=== PATIENT | male | born 1945 | race Two or more races ===

== ENCOUNTER 2024-11-29 07:29 | Inpatient (IN) | payer MEDICARE, MEDICAID, SELFPAY ==
[2024-11-29] VITALS (28 sets, daily range): BP systolic 94–136; BP diastolic 48–95; PULSE 53–161; RESP 12–24; TEMP 36.6–36.9; O2SAT 86–100; BMI 29.9
--- NOTE | 2024-11-29 07:40 | EKG_ITS ---
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
--- NOTE | 2024-11-29 08:06 | PD.EDARRY ---
ED Arrhythmia Palp. RME/HPI General Chief Complaint: Chest Pain Stated Complaint: chest pain chills Time Seen by Provider: 11/29/24 08:03 Arrival date/time: 11/29/24 07:29 RME / HPI RME / HPI narrative: DR. HOYOS MAIN ED EVALUATION: 79-year-old male with history of hypertension, who presents to the emergency department with approximately 18 hours of substernal chest burning which he describes as acid pain , which is progressively worsened to this morning where he is now feeling lightheaded and wants to faint. He denies recent illness. He denies shortness of breath or cough. He denies any new medicines prescribed or [id number]. Related Data Home Medications ?Medication ?Instructions ?Recorded ?Confirmed aspirin 81 mg tablet 81 mg PO QDAY 08/13/20 08/13/20 losartan 100 mg tablet 100 mg PO QDAY 08/13/20 08/13/20 Previous Rx's ?Medication ?Instructions ?Recorded azithromycin 250 mg tablet See Rx Instructions PO .COMPLEX #6 08/13/20 tabs ibuprofen 600 mg tablet 600 mg PO QID PRN fever or pain 08/13/20 #30 tabs psyllium husk 3.4 gram/5.4 gram 1 tbsp PO QDAY #283 grams 08/13/20 oral powder Allergies Allergy/AdvReac Type Severity Reaction Status Date / Time No Known Allergies Allergy Verified 11/29/24 07:31 Review of Systems Review of Systems Systems Reviewed: All systems reviewed, normal except as documented Past Medical History Past Medical History CARDIAC: Negative Congestive Heart Failure RESPIRATORY: Negative Chronic Obstructive Pulmonary Disease (COPD) GENITOURINARY: Negative Renal Disease ENDOCRINE: Negative Diabetes Mellitus Type 1 or Diabetes Mellitus Type 2 Social History SMOKING STATUS: Never smoker SUBSTANCE USE: does not use ALCOHOL: Never ED Exam Narrative Physical exam: GENERAL APPEARANCE: AxOx4, generally well-appearing, no acute distress, anxious crying HEART: Normal rate and regular rhythm, normal S1/S1, no m/r/g LUNGS: CTAB, moving air well. No crackles or wheezes are heard. ABDOMEN: Soft, nontender, nondistended with good bowel sounds heard. EXTREMITIES: Without cyanosis, clubbing or edema. NEUROLOGICAL: Grossly nonfocal. Alert and oriented, moving all 4 extremities. CN not formally tested but appear grossly intact. Observed to ambulate with normal gait. Skin: Warm and dry without any rash. Course Quality Measures none Orders Category Date Time Status EKG (ED ONLY) *Do not use* NOW Care 11/29/24 07:40 Completed EKG (ED Only) Stat Exams 11/29/24 07:40 Draft Reevaluation(s) Reevaluation #1: Re-assessment at the time of disposition demonstrates that the patient is well appearing but heart rate still in the 118-120s even on a full dose of Diltiazem drip. Will admit the patient. Time: 10:15 Vital Signs Vital signs: Vital Signs Temperature 97.8 F 11/29/24 07:45 Pulse Rate 127 H 11/29/24 07:45 Respiratory Rate 24 H 11/29/24 07:45 Blood Pressure 129/92 H 11/29/24 07:45 Pulse Oximetry (%) 99 11/29/24 07:45 Oxygen Delivery Method Room Air 11/29/24 07:45 oxygen saturation 99% on room air, patient is not hypoxic Procedures -ED EKG Interpretation #1: Date of EK11/29/24 Time of EK:48 Rate: 142 Interpretation: Interpreted by me EKG Impression: No acute ST-T changes, Normal axis and Atrial fibrillation (Rapid ventricular response) Arrhythmia/Palpitations MDM Narrative MDM Narrative:: I, Ginny Thompson am scribing for and in the presence of Dr. Hoyos. Patient data External records reviewed:: [facility] previous records Clinical information provided by:: patient Social determinants that could affect healthcare access:: none Patient has the following chronic illnesses:: Hypertension How is presenting disease/condition affected by chronic disease/condition?: uneffected by Evaluation data The following diagnostics were reviewed and interpreted by me:: lab results, radiology exam(s) and EKG tracing(s) Lab and/or radiology exams considered but not ordered:: none Interpretation Summary: Procedure(s): XR chest 1V Accession Number(s): [id number] cc: Austin Hoyos MD; Americo Thompson MD~ Examination: AP chest single view Technique one AP portable upright chest single view Exam date and time: November 29, 2024 0720 hours Comparison August 13, 2020 INDICATIONS: Onset chest pain today FINDINGS: Normal heart size No pneumonia or pulmonary edema IMPRESSION: No pneumonia or pulmonary edema Dictated By: Americo Thompson MD Medications / Prescriptions Medications or Prescriptions considered but not ordered:: none Medication administrations:: see above if any Consultations Consultation(s) initiated? (list below): Yes Consultation #1 (Physician, Specialty, Details): Discussed test HPI, PMHx, lab, radiology results and/or management with hospitalist. Will admit for further evaluation and management. Accepts patient for admission. Time: 10:30 Diagnosis Differential diagnosis arrhythmia/palpitations: palpitations, anxiety, sinus tachycardia and supraventricular tachycardia Most likely diagnosis given after review of the tests above:: Atrial fibrillation with RVR Chest pain Admission Indicated Admission indicated?: indicated Admission Request Was there a request for admission?: Yes Admission Attestation Admission request attestation: Discussed case with [] from Hospitalist service regarding admission. Discussed patients ED course, exam findings, labs, and radiology results. The Hospitalist [agrees,declines] to accept the patient for admission. Disposition Plan Disposition Plan: Admit Critical Care Time Critical Care Time Critical Care Time: Yes Total Critical Care Time (min.): 45 Attestation: The high probability of sudden, clinically significant deterioration in the patient?s condition required the highest level of my preparedness to intervene urgently. The services I provided to this patient were to treat and/or prevent clinically significant deterioration. Services included the following: chart data review, reviewing nursing notes and/or old charts, documentation time, outplacement consultant collaboration regarding findings and treatment options, medication orders and management, direct patient care, vital sign assessments and ordering, interpreting and reviewing diagnostic studies and lab tests. Aggregate critical care time includes only time during which I was engaged in work directly related to the patient?s care, as described above, whether at bedside or elsewhere in the Emergency Department. It did not include time spent performing other reported procedures or the services of residents, students, nurses or physician assistants. Discharge Plan Plan Patient Disposition: Admit Acute Care w/in Hospital Prescriptions/Referrals Prescriptions/Med Rec: No Action aspirin 81 mg Tablet 81 mg PO QDAY losartan 100 mg Tablet 100 mg PO QDAY azithromycin 250 mg tablet See Rx Instructions .ROUTE .COMPLEX Qty: 6 0RF Rx Instructions: take 500 mg today (day 1), then 250 mg for 4 days (days 2-5) psyllium husk 3.4 gram/5.4 gram powder 1 tbsp PO QDAY Qty: 283 0RF Rx Instructions: mix into at least 8 oz of water or juice before administering ibuprofen 600 mg tablet 600 mg PO QID PRN (Reason: fever or pain) Qty: 30 0RF Referrals: Troy Millard [Primary Care Provider] - In 1 week Problem List Clinical Impression: Atrial fibrillation with RVR, Chest pain Patient/Caregiver Discharge Instructions Print Language: Tuvaluan Stand Alone Forms: Gi Award Info., Patient Portal Info Letter
--- NOTE | 2024-11-29 08:14 | PC.NURSE ---
PT ARRIVES FROM HOME THROUGH TRIAGE, FR CP THAT BEGAN THIS MORNING. PT KSTATES IT IS A DULL SENSATION 8/10 PAIN , AND HAS DIZZINESS WELL. PT TANVI RVR ON TELE, OTHE VSS.
[2024-11-29] MEDS: Aspirin 325 MG TABLET PO (08:25)
[2024-11-29] MEDS: DILTIAZEM INJ 5 MG/ML VIAL 5 ML 15 MG IV (08:26)
[2024-11-29 08:28] LABS: Basophils % (Auto) 1 % (0-2.5); Eosinophils # (Auto) 0.1 Thou/mm3 (0.0-0.5); Eosinophils % (Auto) 1 % (0-10); Hematocrit 39.7 % (41.0-53.0); Hemoglobin 14.4 g/dL (13.5-16.0); Immature Granulocytes % (Auto) 0 % (0-0); Immature Granulocytes Auto 0.01 Thou/mm3 (0.00-0.00); Lymphocytes # (Auto) 0.9 Thou/mm3 (1.0-4.8); Lymphocytes % (Auto) 13 % (10-50); Mean Corpuscular HGB Conc 36.3 g/dl (31.0-37.0); Mean Corpuscular Hemoglobin 33.3 pg (25.0-35.0); Mean Corpuscular Volume 92 fL (80-100); Monocytes # (Auto) 0.5 Thou/mm3 (0.0-0.8); Monocytes % (Auto) 7 % (0-12); Neutrophils # (Auto) 5.6 Thou/mm3 (1.8-7.7); Neutrophils % (Auto) 78 % (37-80); Nucleated Red Blood Cell % 0 /100 WBC (0); Platelet Count 229 Thou/mm3 (140-440); RDW Standard Deviation 44.1 fL (35.1-43.9); Red Blood Count 4.33 Miln/mm3 (4.50-5.90); White Blood Count 7.1 Thou/mm3 (3.8-10.6)
[2024-11-29] MEDS: DILTIAZEM in D5W 125 MG 125 MG/125 ML BAG 10 MG IV (08:30)
[2024-11-29 08:58] LABS: Alanine Aminotransferase 17 U/L (10-49); Albumin, Serum 4.6 gm/dL (3.4-4.8); Albumin/Globulin Ratio 1.5 (1.2-2.2); Alkaline Phosphatase 92 U/L (46-116); Anion Gap 14 (7-16); Aspartate Amino Transferase 22 U/L (0-34); BUN/Creatinine Ratio 17 Ratio (12-20); Bilirubin,Total 1.8 mg/dL (0.3-1.2); Blood Urea Nitrogen 19 mg/dL (9-23); Calcium 10.7 mg/dL (8.3-10.6); Calcium (Corrected) 10.7 mg/dL (8.5-10.1); Carbon Dioxide 23.1 mMol/L (20.0-31.0); Chloride 103 mMol/L (98-107); Creatinine (Component) 1.1 mg/dL (0.6-1.3); Estimated Creatinine Clearance 55.5 mL/min (>60); Glucose 150 mg/dL (74-106); Osmolality,Calculated 284 (275-295); Potassium 3.3 mMol/L (3.4-5.1); Sodium 140 mMol/L (136-145); Total Protein 7.6 gm/dL (5.7-8.2); Troponin I < 0.020 ng/mL (0.0-0.045); eGFR > 60 See Note
[2024-11-29] MEDS: HEPARIN SOD INJ 5000 UNIT/ML VIAL SC (13:26)
[2024-11-29] MEDS: PANTOPRAZOLE 40 MG TABLET PO (13:27)
[2024-11-29] MEDS: POTASSIUM CHLORIDE 20 mEq TABCR 40 MEQ PO (13:27)
--- NOTE | 2024-11-29 13:47 | ESHP_ITS ---
Documentation for date of: 11/29/24 [facility] History of Present Illness Chief complaint: chest pain History of present illness: The patient is a 79-year-old male with a previous medical history of hypertension who came to the ED due to chest pain that started approximately a day ago. He reported that he ate some food before going to sleep and woke up with feeling in his chest that is similar to the heartburn that he has. The chest pain worsened and he started to experiencing lightheadedness, dizziness he decided to go to the ED. In the ED his blood pressure was 129/92, pulse was in the 130s-150s, he saturating well on room air. Labs showed mild hypokalemia 3.3, creatinine 1.1, glucose 150, T. bili 1.8, corrected calcium 10.7, troponin I was negative twice, normal lipase. EKG revealed atrial fibrillation chest x- ray was negative for pneumonia or pulmonary edema. He received aspirin 325 mg once, diltiazem 50 mg once and was started on diltiazem drip. His chest pain has improved and he reports that at the moment of examination he does not have a chest pain. Patient was admitted for management of new onset A-fib. Allergies: None Social history: works as a riding coach at the school, he is a drink and smoke cigarettes over 30 years ago Surgical history: Left arm surgery when he was younger due to an accident Family history:Brother from a heart attack Review of Systems Review of Systems Systems Reviewed: All systems reviewed, normal except as documented Past Medical History Past Medical History CARDIAC: Positive Hypertension; Negative Congestive Heart Failure RESPIRATORY: Negative Chronic Obstructive Pulmonary Disease (COPD) GENITOURINARY: Negative Renal Disease ENDOCRINE: Negative Diabetes Mellitus Type 1 or Diabetes Mellitus Type 2 Social History SMOKING STATUS: Never smoker SUBSTANCE USE: does not use ALCOHOL: Never Exam Vital Signs Temp Pulse Resp BP Pulse Ox O2 Del Method 97.8 F 135 H 16 114/64 95 Room Air 11/29/24 07:45 11/29/24 10:30 11/29/24 10:30 11/29/24 10:30 11/29/24 10:30 11/29/24 09:00 Narrative Exam Physical Exam General: Awake and in no acute distress. Conversational and non-toxic appearing. HEENT: Normocephalic, atraumatic, mucous membranes moist. Heart: Irregular rate and rhythm, no murmurs. Lungs: Clear to auscultation with no wheezing or crackles. Abdomen: Soft, nondistended, nontender, positive bowel sounds. ?No guarding or rebound tenderness. Neurologic: Alert and oriented x3, no gross neurological deficit, and patient able to move all 4 extremities. Extremities: No edema. Skin: No rash or ecchymoses. Results: Labs 11/30/24 04:39 11/30/24 04:39 Labs: Short CBC 11/29/24 Range/Units 08:00 WBC 7.1 (3.8-10.6) Thou/mm3 Hgb 14.4 (13.5-16.0) g/dL Hct 39.7 L (41.0-53.0) % Plt Count 229 (140-440) Thou/mm3 BMP 11/29/24 08:00 Sodium 140 Potassium 3.3 L Chloride 103 Carbon Dioxide 23.1 BUN 19 Creatinine 1.1 Glucose 150 H Calcium 10.7 H Cardiac Enzymes 11/29/24 Range/Units 08:00 Troponin I < 0.020 (0.0-0.045) ng/mL Liver Function 11/29/24 Range/Units 08:00 Total Bilirubin 1.8 H (0.3-1.2) mg/dL AST 22 (0-34) U/L ALT 17 (10-49) U/L Alkaline Phosphatase 92 (46-116) U/L Albumin 4.6 (3.4-4.8) gm/dL Quality Measures Quality Measures VTE prophylaxis Advance care planning discussed with:: patient Medications Home Medications and Allergies Home Medications ?Medication ?Instructions ?Recorded ?Confirmed ?Type losartan 100 mg tablet 100 mg PO QDAY 08/13/20 1211/01 History amlodipine 10 mg tablet 10 mg PO DAILY 11/30/2411/11 History aspirin 325 mg tablet,delayed 325 mg PO DAILY 11/30/24 11/30/24 History release valsartan 160 1 tab PO DAILY 11/30/2411/11 History mg-hydrochlorothiazide 25 mg tablet Allergies Allergy/AdvReac Type Severity Reaction Status Date / Time No Known Allergies Allergy Verified 11/29/24 07:31 Visit Medications Acetaminophen (Acetaminophen 325 Mg Tablet) 650 mg PO Q6H PRN PRN Reason: PAIN SCALE 1-3 (mild Stop: 12/29/24 11:32 Heparin Sodium (Porcine) (Heparin Sod Inj 5000 Unit/Ml Vial) 5,000 unit SC Q8HR [facility] Stop: 12/13/24 13:59 Last Admin: 11/29/24 13:26 Dose: 5,000 unit Diltiazem HCl (Diltiazem In D5w 125 Mg) 125 mg in 125 mls @ 10 mls/hr IV .[id number] [facility] Stop: 12/29/24 08:14 Last Admin: 11/29/24 08:30 Dose: 10 mg/hr, 10 mls/hr Ondansetron HCl (Ondansetron Inj 2 Mg/Ml Inj 2 Ml) 4 mg IV Q6H PRN; Protocol PRN Reason: NAUSEA OR VOMITING Stop: 12/29/24 11:32 Pantoprazole Sodium (Pantoprazole 40 Mg Tablet) 40 mg PO QDAY [facility] Stop: 12/29/24 11:44 Last Admin: 11/29/24 13:27 Dose: 40 mg Discontinued Medications Aspirin (Aspirin 325 Mg Tablet) 325 mg PO X1 ONE Stop: 11/29/24 08:09 Last Admin: 11/29/24 08:25 Dose: 325 mg Diltiazem HCl (Diltiazem Inj 5 Mg/Ml Vial 5 Ml) 15 mg IV X1 ONE Stop: 11/29/24 08:09 Last Admin: 11/29/24 08:26 Dose: 15 mg Potassium Chloride (Potassium Chloride 20 Meq Tabcr) 40 meq PO X1 ONE Stop: 11/29/24 13:19 Last Admin: 11/29/24 13:27 Dose: 40 meq Assessment & Plan Plan The patient is a 79-year-old male with a previous medical history of hypertension who came to the ED due to chest pain that started approximately a day ago. Patient was admitted for management of new onset A-fib with RVR. #New onset Afib with RVR [id number] score is 2. Plan: ?Telemetry ? Diltiazem drip ? Cardiology consult ? Echo ordered ? Lipid panel ? TSH - coagulation panel ?Heparin drip #Hypertension At the moment blood pressure is normal, holding home blood pressure medications. Plan: ? Diltiazem drip ? Lipid panel Health maintenance: FEN: cardiac DVT prophylaxis: heparin sc GI prophylaxis: pantoprazole Dispo: telemetry CODE STATUS: full code Plan of care discussed with attending Dr. Ortega, PGY-[address] Jacob and PGY-[address] wallace. Gema Peng MD, PGY 1. Attending Provider Attestation/Addendum Dolly Yap DO, attest that I was physically present for the conti portions of the service and evaluated the patient with the resident and I reviewed and discussed the case with the resident and agree with the resident's findings and plans of care as documented above Patient 79-year-old male with past medical history of hypertension who presented to the ED due to substernal chest discomfort. Patient stated that the chest pain began at around 2 in the morning when he went to make himself a snack. He states that he felt tachycardic and dull pain in the substernal region. He also reported lightheadedness and shortness of breath, prompting him to come to ED. Patient was found to have Afib with RVR. Patient denies any personal history of cardiac disease. HR noted to be in the 150s and BP 129/92. Patient was started on cardizem drip 10mg/hr and HR currently in the 120s. Will admit patient to telemetry for new onset Afib. Will consult cardiology and obtain echocardiogram and TSH. Patient denies any hx of head trauma or GI bleed. Risks of bleeding was discussed with patient regarding full dose anticoagulation. Will start heparin drip and f/u with cardiology recommendations.
--- NOTE | 2024-11-29 15:07 | ESCONSULT_ITS ---
<Statement entered by Ashwini Martin MD - 12/02/24 13:43> I personally examined the patient evaluated in the emergency room with PGY 3 Dr. Beckwith I agree with the treatment plan recommendation patient has new onset atrial fibrillation IV diltiazem being given increase the dosage of IV diltiazem to 15 mg/h once he converts to sinus rhythm switched to oral diltiazem may consider amiodarone as well echo will be performed later on for assessment LV function. All essential complaints reviewed by me personally in detail HPI Data of Consult Requesting Physician: Dolly Ortega DO Admitting Provider: Dolly Ortega DO Attending Provider: Dolly Ortega DO Primary Care Provider: Troy Olivares Consult Narrative Reason for consult: New onset atrial fibrillation History of present illness: Patient is a 79-year-old Marshallese-speaking male with history of hypertension, and hypothyroidism who presented to the ED with concerns of heartburn, was found to have atrial fibrillation with rapid ventricular response with a heart rate of 142. In ED, patient was treated with diltiazem 15 mg push and started on diltiazem drip, heart rate noted to fluctuate between 80s and 120s during examination. Certified [place]et[place] blind [place] ([place] [id number]) to assist with translation. Patient states that he does not have any heartburn at time of examination, but does state that the heartburn began around 12 in the afternoon yesterday. Denies any previous episodes, also denies any chest pain but states that the heartburn did not improve until he was treated here in the ED. No inciting factors reported, although patient states he consumed warm milk and cake prior to falling asleep, woke up feeling the discomfort in his epigastric region, no radiation reported. Patient denied any nausea, heartburn, chest pain, arm pain, dizziness, headaches, numbness/tingling, fever, or diarrhea. He also states that he did not have his morning medications. Patient does endorse following a outbound sales professional in [place] but states he only takes aspirin and blood pressure medications, no history of CVA reported. In ED, patient was found to have heart rate of 135 upon presentation, greater calcium 10.7, total bilirubin 1.8, glucose 150, and potassium 3.3 with troponin levels within normal range, EKG showing Atrial fibrillation with RvR. Cardiology consulted for new onset atrial fibrillation. Past medical history: Hypertension, hypothyroidism Family history: Noncontributory Past surgical history: Left arm surgery and right eyelid surgery Social history: Denies tobacco, alcohol, or illicit drug use. cc:: cc: Dolly Ortega DO Review of Systems Review of Systems Narrative Review of Systems: GENERAL: Denies fevers/chills or diaphoresis. HEENT: Denies headache or visual/hearing changes NEURO: Denies unusual weakness or difficulty speaking. CARDIO: Denies chest pain or palpitations. PULM: Denies SOB, coughing, or wheezing. GI: Denies abdominal pain, N/V/C/D/reflux/gas, bright red blood per rectum or melena URO: Denies burning/itching/pain/urinary changes. MSK/EXT/SKIN: Denies joint/skeletal/muscle pain Past Medical History Past Medical History Comments PMH COMMENT: Past medical history: Hypertension, hypothyroidism, and ?BPH Family history: Noncontributory Past surgical history: Left arm surgery and right eyelid surgery Social history: Denies tobacco, alcohol, or illicit drug use. Exam Vital Signs Temp Pulse Resp BP Pulse Ox O2 Del Method 97.8 F 146 H 16 108/65 97 Room Air 11/29/24 07:45 11/29/24 14:23 11/29/24 14:23 11/29/24 14:23 11/29/24 14:23 11/29/24 09:00 Narrative Exam General: AOx3, cooperative, in no acute distress HEENT: Atraumatic/normocephalic, CHIKI, neck supple without masses Heart: Irregular rhythm, no clicks or murmurs Lungs: Clear on auscultation bilaterally, no difficulty breathing Abdomen: Soft, nontender. Bowel sounds present on all quadrants, no organomegaly Skin: Intact, no cyanosis or edema noted Neuro: No focal neurological deficits noted Results Labs 11/29/24 08:00 11/29/24 08:00 Labs: Short CBC 11/29/24 Range/Units 08:00 WBC 7.1 (3.8-10.6) Thou/mm3 Hgb 14.4 (13.5-16.0) g/dL Hct 39.7 L (41.0-53.0) % Plt Count 229 (140-440) Thou/mm3 BMP 11/29/24 08:00 Sodium 140 Potassium 3.3 L Chloride 103 Carbon Dioxide 23.1 BUN 19 Creatinine 1.1 Glucose 150 H Calcium 10.7 H Cardiac Enzymes 11/29/24 Range/Units 08:00 Troponin I < 0.020 (0.0-0.045) ng/mL Liver Function 11/29/24 Range/Units 08:00 Total Bilirubin 1.8 H (0.3-1.2) mg/dL AST 22 (0-34) U/L ALT 17 (10-49) U/L Alkaline Phosphatase 92 (46-116) U/L Albumin 4.6 (3.4-4.8) gm/dL Quality Measures Quality Measures VTE prophylaxis Advance care planning discussed with:: patient Medications Home Medications and Allergies Home Medications ?Medication ?Instructions ?Recorded ?Confirmed ?Type aspirin 81 mg tablet 81 mg PO QDAY 08/13/2008/13 History losartan 100 mg tablet 100 mg PO QDAY 08/13/2011/01 History Allergies Allergy/AdvReac Type Severity Reaction Status Date / Time No Known Allergies Allergy Verified 11/29/24 07:31 Visit Medications Acetaminophen (Acetaminophen 325 Mg Tablet) 650 mg PO Q6H PRN PRN Reason: PAIN SCALE 1-3 (mild Stop: 12/29/24 11:32 Heparin Sodium (Porcine) (Heparin Sod Inj 5000 Unit/Ml Vial) 5,000 unit SC Q8HR [facility] Stop: 12/13/24 13:59 Last Admin: 11/29/24 13:26 Dose: 5,000 unit Diltiazem HCl (Diltiazem In D5w 125 Mg) 125 mg in 125 mls @ 10 mls/hr IV .[id number] [facility] Stop: 12/29/24 08:14 Last Admin: 11/29/24 08:30 Dose: 10 mg/hr, 10 mls/hr Ondansetron HCl (Ondansetron Inj 2 Mg/Ml Inj 2 Ml) 4 mg IV Q6H PRN; Protocol PRN Reason: NAUSEA OR VOMITING Stop: 12/29/24 11:32 Pantoprazole Sodium (Pantoprazole 40 Mg Tablet) 40 mg PO QDAY [facility] Stop: 12/29/24 11:44 Last Admin: 11/29/24 13:27 Dose: 40 mg Discontinued Medications Aspirin (Aspirin 325 Mg Tablet) 325 mg PO X1 ONE Stop: 11/29/24 08:09 Last Admin: 11/29/24 08:25 Dose: 325 mg Diltiazem HCl (Diltiazem Inj 5 Mg/Ml Vial 5 Ml) 15 mg IV X1 ONE Stop: 11/29/24 08:09 Last Admin: 11/29/24 08:26 Dose: 15 mg Potassium Chloride (Potassium Chloride 20 Meq Tabcr) 40 meq PO X1 ONE Stop: 11/29/24 13:19 Last Admin: 11/29/24 13:27 Dose: 40 meq Assessment & Plan Plan Patient is a 79-year-old Marshallese-speaking male with history of hypertension, and hypothyroidism who presented to the ED with concerns of heartburn, was found to have atrial fibrillation with rapid ventricular response with a heart rate of 142. In ED, patient was treated with diltiazem 15 mg push and started on diltiazem drip, heart rate noted to fluctuate between 80s and 120s during examination. Certified venetian blind [place] ([place] [id number]) to assist with translation. Patient states that he does not have any heartburn at time of examination, but does state that the heartburn began around 12 in the afternoon yesterday. Denies any previous episodes, also denies any chest pain but states that the heartburn did not improve until he was treated here in the ED. No inciting factors reported, although patient states he consumed warm milk and cake prior to falling asleep, woke up feeling the discomfort in his epigastric region, no radiation reported. Patient denied any nausea, heartburn, chest pain, arm pain, dizziness, headaches, numbness/tingling, fever, or diarrhea. He also states that he did not have his morning medications. Patient does endorse following a outbound sales professional in [place] but states he only takes aspirin and blood pressure medications, no history of CVA reported. In ED, patient was found to have heart rate of 135 upon presentation, greater calcium 10.7, total bilirubin 1.8, glucose 150, and potassium 3.3 with troponin levels within normal range, EKG showing Atrial fibrillation with RvR. Cardiology consulted for new onset atrial fibrillation. #New-onset atrial fibrillation EKG in ED reveals Atrial fibrillation with RvR, heart rate 142. Patient denies history of atrial fibrillation, denies taking anticoagulation Troponin levels within normal range No chest pain endorsed Treated with IV 15mg diltiazem push, started on IV diltiazem drip CHADVASc score 3 (age, hypertension history) HAS-BLED score 0 Plan: - Continue IV diltiazem drip for < 24 hours. If heart rate remains uncontrolled, give additional diltiazem bolus (20mg x1) and increase drip rate to 15mg/hr. - Continue drip until heart rate stabilizes, convert to PO diltiazem 1 hour prior to stopping IV. - Echocardiogram advised - Anticoagulation advised, eliquis 5mg BID if patient is agreeable to anticoagulation - If atrial fibrillation persists with IV diltiazem, will plan to switch to IV amiodarone with PO diltiazem on 11/30 #History of hypertension Home medications include amlodipine 10mg qday and valsartan/hctz 160/25 mg qday Plan: - Resume home medications as blood pressures allow - Continue IV diltiazem drip for atrial fibrillation #Hypercalcemia #Hyperbilirubinemia #History of Hypothyroidism - Management per primary team Patient case discussed with attending physician Dr. Mario Beckwith, DO PGY-3
--- NOTE | 2024-11-29 17:06 | PC.NURSE ---
SPOKE W/PROVIDER AT THIS TIME, SAID NOT TO GIVE DILT IVP PTS HR IS 80-90S BUT TO INCREASE GTT
[2024-11-29 17:13] LABS: Partial Thromboplastin Time 26.7 Seconds (22.0-36.0); Prothrombin Time 11.4 Seconds (9.0-12.2)
[2024-11-29] MEDS: DILTIAZEM in D5W 125 MG 125 MG/125 ML BAG 15 MG IV (17:28)
[2024-11-29] MEDS: HEPARIN SOD INJ 5000 UNIT/ML VIAL 4000 UNIT IV (17:28)
[2024-11-29] MEDS: Heparin/D5w 25K 250 ML Ivpb 25,000 UNIT/250 ML BAG 10.124 UNIT IV (17:29)
[2024-11-29 23:40] LABS: Partial Thromboplastin Time 39.2 Seconds (22.0-36.0)
[2024-11-30] VITALS (10 sets, daily range): BP systolic 97–152; BP diastolic 50–74; PULSE 53–100; RESP 12–18; TEMP 36.1–36.4; O2SAT 95–98; BMI 28.8
[2024-11-30] MEDS: HEPARIN SOD INJ 5000 UNIT/ML VIAL 2000 UNIT IVP (00:37)
[2024-11-30] MEDS: DILTIAZEM in D5W 125 MG 125 MG/125 ML BAG 15 MG IV (02:21)
[2024-11-30 06:02] LABS: Basophils # (Auto) 0.1 Thou/mm3 (0.0-0.2); Basophils % (Auto) 1 % (0-2.5); Eosinophils # (Auto) 0.2 Thou/mm3 (0.0-0.5); Eosinophils % (Auto) 2 % (0-10); Hematocrit 40.6 % (41.0-53.0); Hemoglobin 14.1 g/dL (13.5-16.0); Immature Granulocytes % (Auto) 0 % (0-0); Immature Granulocytes Auto 0.03 Thou/mm3 (0.00-0.00); Lymphocytes # (Auto) 2.2 Thou/mm3 (1.0-4.8); Lymphocytes % (Auto) 27 % (10-50); Mean Corpuscular HGB Conc 34.7 g/dl (31.0-37.0); Mean Corpuscular Hemoglobin 32.9 pg (25.0-35.0); Mean Corpuscular Volume 95 fL (80-100); Monocytes # (Auto) 0.7 Thou/mm3 (0.0-0.8); Monocytes % (Auto) 9 % (0-12); Neutrophils # (Auto) 4.8 Thou/mm3 (1.8-7.7); Neutrophils % (Auto) 61 % (37-80); Nucleated Red Blood Cell % 0 /100 WBC (0); Platelet Count 217 Thou/mm3 (140-440); RDW Standard Deviation 46.6 fL (35.1-43.9); Red Blood Count 4.29 Miln/mm3 (4.50-5.90); White Blood Count 7.9 Thou/mm3 (3.8-10.6)
[2024-11-30 06:41] LABS: Partial Thromboplastin Time 75.4 Seconds (22.0-36.0)
[2024-11-30 07:15] LABS: Alanine Aminotransferase 13 U/L (10-49); Albumin, Serum 3.9 gm/dL (3.4-4.8); Albumin/Globulin Ratio 1.4 (1.2-2.2); Alkaline Phosphatase 73 U/L (46-116); Anion Gap 13 (7-16); Aspartate Amino Transferase 26 U/L (0-34); BUN/Creatinine Ratio 11 Ratio (12-20); Blood Urea Nitrogen 13 mg/dL (9-23); Calcium 9.2 mg/dL (8.3-10.6); Calcium (Corrected) 9.3 mg/dL (8.5-10.1); Carbon Dioxide 23.1 mMol/L (20.0-31.0); Cardiac Risk Estimate 2.7 RATIO (4.0-6.7); Chloride 102 mMol/L (98-107); Cholesterol 137 mg/dL (132-200); Creatinine (Component) 1.2 mg/dL (0.6-1.3); Estimated Creatinine Clearance 49.9 mL/min (>60); Globulin 2.8 gm/dL (2.3-3.5); Glucose 101 mg/dL (74-106); HDL Cholesterol 50 mg/dL (40-60); LDL Cholesterol,Calculated 75 mg/dL (0-130); Magnesium 1.9 mg/dL (1.6-2.6); Osmolality,Calculated 275 (275-295); Phosphorous 3.5 mg/dL (2.4-5.1); Potassium 4.1 mMol/L (3.4-5.1); Sodium 138 mMol/L (136-145); Total Protein 6.7 gm/dL (5.7-8.2); Triglycerides 60 mg/dL (30-150); eGFR > 60 See Note
--- NOTE | 2024-11-30 07:37 | XR_ITS ---
Examination: Abdomen sonogram, complete Date and time of exam: November 30, 2024 at 0901 hours INDICATIONS: Heartburn acid reflux today. Technique: Multiple real-time grayscale transabdominal sonographic images of the abdomen have been obtained. Findings: Absent gallbladder Common bile duct 0.8 cm no stones Pancreatic head 2.8 cm Aorta not enlarged Liver 17.4 cm fatty infiltration, right lobe liver lesion with irregular margins 6.3 x 2.8 x 4.9 cm Normal hepatopedal portal venous oh Patent IVC Right kidney 10.2 cm cortex 1.4 cm 21 mm upper pole cyst Left kidney 10.9 cm cortex 1.9 cm 8mm upper pole cyst Moderate bilateral renal parenchymal scar formation Spleen 9.2 cm IMPRESSION: Absent gallbladder Common bile duct 0.8 cm no stones noted Mild hepatomegaly Large right lobe liver lesion with irregular margins, measuring 6.3 x 2.8 x 4.9 cm, recommend MRI abdomen liver follow-up, pre and postcontrast to assess this liver lesion Moderate bilateral renal parenchymal scar formation
[2024-11-30 08:35] LABS: Thyroid Stimulating Hormone 6.06 uIU/mL (0.55-4.78)
--- NOTE | 2024-11-30 08:41 | PC.SS ---
Follow up note: On IV antibiotic, monitor hemoglobin, repeat ultra sound of the abdomen, and waiting for mentation to improve.
[2024-11-30] MEDS: PANTOPRAZOLE 40 MG TABLET PO (09:34)
[2024-11-30] MEDS: Magnesium Sulfate 2 GM Ivpb 2 GM/50 ML BAG IV (09:34)
[2024-11-30] MEDS: APIXABAN 2.5 MG TABLET 5 MG PO ×2 (10:10→20:57)
[2024-11-30] MEDS: DILTIAZEM 30 MG TABLET 60 MG PO ×3 (12:11→20:57)
--- NOTE | 2024-11-30 15:16 | PC.SS ---
SS met with patient regarding his d/c plan.? Pt is alert/oriented.? Pt was admitted for New Onset AFIB with RVR.? Pt confirmed demographic and contact information is correct on facesheet.? Pt resides with friend.? Pt ambulates independently without assistance or DME.? Pt is ok with all ADLs.? Pt named his friend, Ramu Patel medical decision maker if he isunable.? SS provided pt with verbal d/c options for home or SNF.? Patient?s choice is to return home upon d/c.? Pt states he followed up with PCP 1 month ago.? Pt states she is not diabetic and is not on dialysis.? D/C plan:? Return home Next of Kin:? ?Ramu Patel, friend, phone# [phone] or Reji, friend, phone# [phone] (pt states does not have family is the area) PCP:? Troy Millard Address:? Correct on facesheet
--- NOTE | 2024-11-30 15:28 | ESPR_ITS ---
<Statement entered by Ashwini Martin MD - 12/02/24 13:43> I examined the patient with resident physician Dr. Beckwith PGY 3 agree with the treatment plan recommendation patient is converted to sinus rhythm with IV diltiazem was changed to oral diltiazem will get a cardiac echo for assessment LV function. All enzymes are negative no evidence of myocardial infarction patient will require a cardiac workup as an outpatient can be discharged home to have an echo as an outpatient. Documentation for date of: 11/30/24 Subjective Subjective Interval history: Overnight events, lab/imaging results, and notes reviewed. Patient examined bedside, reports feeling well without palpitations or chest pain. Telemetry reviewed, patient noted to convert to sinus rhythm, has been transitioned from IV diltiazem to PO 60mg QID diltiazem. Echo remains ordered, will review echo to consider alternative rhythm medications if indicated. Exam Vital Signs Temp Pulse Resp BP Pulse Ox O2 Del Method 97.4 F 60 14 117/50 L 95 Room Air 11/30/24 12:00 11/30/24 12:11 11/30/24 12:00 11/30/24 12:11 11/30/24 12:00 11/30/24 12:00 Narrative Exam General: AOx3, cooperative, in no acute distress HEENT: Atraumatic/normocephalic, CHIKI, neck supple without masses Heart: RRR, no clicks or murmurs Lungs: Clear on auscultation bilaterally, no difficulty breathing Abdomen: Soft, nontender. Bowel sounds present on all quadrants, no organomegaly Skin: Intact, no cyanosis or edema noted Neuro: No focal neurological deficits noted Objective Labs 11/30/24 04:39 11/30/24 04:39 Labs: Laboratory Results - last 24 hr 11/29/24 11/29/24 11/30/24 16:47 23:15 04:39 WBC 7.9 RBC 4.29 L Hgb 14.1 Hct 40.6 L MCV 95 MCH 32.9 MCHC 34.7 RDW Std Deviation 46.6 H Plt Count 217 Neut % (Auto) 61 Lymph % (Auto) 27 Gregg % (Auto) 9 Eos % (Auto) 2 Baso % (Auto) 1 Neut # (Auto) 4.8 Lymph # (Auto) 2.2 Gregg # (Auto) 0.7 Eos # (Auto) 0.2 Baso # (Auto) 0.1 Immature Gran # (Auto) 0.03 H Absolute Nucleated RBC 0.00 Immature Gran % 0 Nucleated RBC % 0 PT 11.4 INR 1.0 APTT 26.7 39.2 H D 75.4 H D Sodium 138 Potassium 4.1 D Chloride 102 Carbon Dioxide 23.1 Anion Gap 13 BUN 13 Creatinine 1.2 Estim Creat Clear Calc 49.9 L eGFR > 60 BUN/Creatinine Ratio 11 L Glucose 101 Calculated Osmolality 275 Calcium 9.2 D Corrected Calcium 9.3 Phosphorus 3.5 Magnesium 1.9 Total Bilirubin 2.0 H AST 26 ALT 13 Alkaline Phosphatase 73 D Total Protein 6.7 Albumin 3.9 D Globulin 2.8 Albumin/Globulin Ratio 1.4 Triglycerides 60 Cholesterol 137 LDL Cholesterol, Calc 75 HDL Cholesterol 50 Cholesterol/HDL Ratio 2.7 L TSH 11/30/24 07:46 WBC RBC Hgb Hct MCV MCH MCHC RDW Std Deviation Plt Count Neut % (Auto) Lymph % (Auto) Gregg % (Auto) Eos % (Auto) Baso % (Auto) Neut # (Auto) Lymph # (Auto) Gregg # (Auto) Eos # (Auto) Baso # (Auto) Immature Gran # (Auto) Absolute Nucleated RBC Immature Gran % Nucleated RBC % PT INR APTT 89.0 H D Sodium Potassium Chloride Carbon Dioxide Anion Gap BUN Creatinine Estim Creat Clear Calc eGFR BUN/Creatinine Ratio Glucose Calculated Osmolality Calcium Corrected Calcium Phosphorus Magnesium Total Bilirubin AST ALT Alkaline Phosphatase Total Protein Albumin Globulin Albumin/Globulin Ratio Triglycerides Cholesterol LDL Cholesterol, Calc HDL Cholesterol Cholesterol/HDL Ratio TSH 6.06 H Quality Measures Quality Measures VTE prophylaxis Advance care planning discussed with:: patient Assessment & Plan Assessment Current Active Medications: Generic Name Dose Route Start Last Admin Trade Name Freq PRN Reason Stop Dose Admin Acetaminophen 650 mg 11/29/24 11:33 Acetaminophen 325 Mg Tablet PO 12/29/24 11:32 Q6H PRN PAIN SCALE 1-3 (mild Apixaban 5 mg 11/30/24 10:00 11/30/24 10:10 Apixaban 2.5 Mg Tablet PO 12/30/24 09:59 5 mg BID EMIGDIO Administration Diltiazem HCl 60 mg 11/30/24 12:00 11/30/24 12:11 Diltiazem 30 Mg Tablet PO 12/30/24 11:59 60 mg QID EMIGDIO Administration Ondansetron HCl 4 mg 11/29/24 11:33 Ondansetron Inj 2 Mg/Ml Inj 2 Ml IV 12/29/24 11:32 Q6H PRN NAUSEA OR VOMITING Protocol Pantoprazole Sodium 40 mg 11/29/24 11:45 11/30/24 09:34 Pantoprazole 40 Mg Tablet PO 12/29/24 11:44 40 mg QDAY EMIGDIO Administration Plan Patient is a 79-year-old Macedonian-speaking male with history of hypertension, and hypothyroidism who presented to the ED with concerns of heartburn, was found to have atrial fibrillation with rapid ventricular response with a heart rate of 142. In ED, patient was treated with diltiazem 15 mg push and started on diltiazem drip, heart rate noted to fluctuate between 80s and 120s during examination. Certified community service [place] ([place] [id number]) to assist with translation. Patient states that he does not have any heartburn at time of examination, but does state that the heartburn began around 12 in the afternoon yesterday. Denies any previous episodes, also denies any chest pain but states that the heartburn did not improve until he was treated here in the ED. No inciting factors reported, although patient states he consumed warm milk and cake prior to falling asleep, woke up feeling the discomfort in his epigastric region, no radiation reported. Patient denied any nausea, heartburn, chest pain, arm pain, dizziness, headaches, numbness/tingling, fever, or diarrhea. He also states that he did not have his morning medications. Patient does endorse following a [employer] infrastructure consultant in [place] but states he only takes aspirin and blood pressure medications, no history of CVA reported. In ED, patient was found to have heart rate of 135 upon presentation, greater calcium 10.7, total bilirubin 1.8, glucose 150, and potassium 3.3 with troponin levels within normal range, EKG showing Atrial fibrillation with RvR. Cardiology consulted for new onset atrial fibrillation. #New-onset atrial fibrillation EKG in ED reveals Atrial fibrillation with RvR, heart rate 142. Patient denies history of atrial fibrillation, denies taking anticoagulation Troponin levels within normal range No chest pain endorsed Treated with IV 15mg diltiazem push, started on IV diltiazem drip CHADVASc score 3 (age, hypertension history) HAS-BLED score 0 Plan: - IV diltiazem drip for < 24 hours. Give additional diltiazem bolus (20mg x1) and increase drip rate to 15mg/hr. - IV diltiazem stopped once rhythm control achieved, transitioned to PO diltiazem 60mg QID - Eliquis 5mg BID if patient is agreeable to anticoagulation - Echocardiogram ordered, will consider alternate rhythm control medications if indicated #History of hypertension Home medications include amlodipine 10mg qday and valsartan/hctz 160/25 mg qday Plan: - Resume home medications as blood pressures allow - Continue PO diltiazem for atrial fibrillation #Hypercalcemia #Hyperbilirubinemia #History of Hypothyroidism - Management per primary team Patient case discussed with attending physician Dr. Mario Beckwith, DO PGY-3
--- NOTE | 2024-11-30 15:36 | PD.RESPRO ---
Documentation for date of: 11/30/24 Subjective Subjective Interval history: Patient was seen and examined by the bedside. No acute overnight events. Patient is feeling well. Denies shortness of breath, chest pain, palpitations. Continued to receive heparin drip and diltiazem drip throughout the night. Telemetry overnight showed A-fib. Diltiazem drip was stopped and patient was started on oral diltiazem. Heparin drip was stopped and patient was started on Eliquis. Patient was consulted regarding blood thinner use and high risk of bleeding, was recommended to be cautious and try to avoid falling and head trauma. Around noon patient converted to sinus rhythm. Cardiology is following, appreciate recs. Exam Vital Signs Temp Pulse Resp BP Pulse Ox O2 Del Method 97.4 F 60 14 117/50 L 95 Room Air 11/30/24 12:00 11/30/24 12:11 11/30/24 12:00 11/30/24 12:11 11/30/24 12:00 11/30/24 12:00 Narrative Exam Physical Exam General: Awake and in no acute distress. Conversational and non-toxic appearing. HEENT: Normocephalic, atraumatic, mucous membranes moist. Heart: Irregular rate and rhythm, no murmurs. Lungs: Clear to auscultation with no wheezing or crackles. Abdomen: Soft, nondistended, nontender, positive bowel sounds. ?No guarding or rebound tenderness. Neurologic: Alert and oriented x3, no gross neurological deficit, and patient able to move all 4 extremities. Extremities: No edema. Skin: No rash or ecchymoses. Objective Labs 12/01/24 04:21 12/01/24 04:21 Labs: Laboratory Results - last 24 hr 11/29/24 11/29/24 11/30/24 16:47 23:15 04:39 WBC 7.9 RBC 4.29 L Hgb 14.1 Hct 40.6 L MCV 95 MCH 32.9 MCHC 34.7 RDW Std Deviation 46.6 H Plt Count 217 Neut % (Auto) 61 Lymph % (Auto) 27 [place] % (Auto) 9 Eos % (Auto) 2 Baso % (Auto) 1 Neut # (Auto) 4.8 Lymph # (Auto) 2.2 [place] # (Auto) 0.7 Eos # (Auto) 0.2 Baso # (Auto) 0.1 Immature Gran # (Auto) 0.03 H Absolute Nucleated RBC 0.00 Immature Gran % 0 Nucleated RBC % 0 PT 11.4 INR 1.0 APTT 26.7 39.2 H D 75.4 H D Sodium 138 Potassium 4.1 D Chloride 102 Carbon Dioxide 23.1 Anion Gap 13 BUN 13 Creatinine 1.2 Estim Creat Clear Calc 49.9 L eGFR > 60 BUN/Creatinine Ratio 11 L Glucose 101 Calculated Osmolality 275 Calcium 9.2 D Corrected Calcium 9.3 Phosphorus 3.5 Magnesium 1.9 Total Bilirubin 2.0 H AST 26 ALT 13 Alkaline Phosphatase 73 D Total Protein 6.7 Albumin 3.9 D Globulin 2.8 Albumin/Globulin Ratio 1.4 Triglycerides 60 Cholesterol 137 LDL Cholesterol, Calc 75 HDL Cholesterol 50 Cholesterol/HDL Ratio 2.7 L TSH 11/30/24 07:46 WBC RBC Hgb Hct MCV MCH MCHC RDW Std Deviation Plt Count Neut % (Auto) Lymph % (Auto) [place] % (Auto) Eos % (Auto) Baso % (Auto) Neut # (Auto) Lymph # (Auto) [place] # (Auto) Eos # (Auto) Baso # (Auto) Immature Gran # (Auto) Absolute Nucleated RBC Immature Gran % Nucleated RBC % PT INR APTT 89.0 H D Sodium Potassium Chloride Carbon Dioxide Anion Gap BUN Creatinine Estim Creat Clear Calc eGFR BUN/Creatinine Ratio Glucose Calculated Osmolality Calcium Corrected Calcium Phosphorus Magnesium Total Bilirubin AST ALT Alkaline Phosphatase Total Protein Albumin Globulin Albumin/Globulin Ratio Triglycerides Cholesterol LDL Cholesterol, Calc HDL Cholesterol Cholesterol/HDL Ratio TSH 6.06 H Quality Measures Quality Measures VTE prophylaxis Advance care planning discussed with:: patient Assessment & Plan Assessment Current Active Medications: Generic Name Dose Route Start Last Admin Trade Name Freq PRN Reason Stop Dose Admin Acetaminophen 650 mg 11/29/24 11:33 Acetaminophen 325 Mg Tablet PO 12/29/24 11:32 Q6H PRN PAIN SCALE 1-3 (mild Apixaban 5 mg 11/30/24 10:00 11/30/24 10:10 Apixaban 2.5 Mg Tablet PO 12/30/24 09:59 5 mg BID EMIGDIO Administration Diltiazem HCl 60 mg 11/30/24 12:00 11/30/24 12:11 Diltiazem 30 Mg Tablet PO 12/30/24 11:59 60 mg QID EMIGDIO Administration Ondansetron HCl 4 mg 11/29/24 11:33 Ondansetron Inj 2 Mg/Ml Inj 2 Ml IV 12/29/24 11:32 Q6H PRN NAUSEA OR VOMITING Protocol Pantoprazole Sodium 40 mg 11/29/24 11:45 11/30/24 09:34 Pantoprazole 40 Mg Tablet PO 12/29/24 11:44 40 mg QDAY EMIGDIO Administration Plan The patient is a 79-year-old male with a previous medical history of hypertension who came to the ED due to chest pain that started approximately a day ago. Patient was admitted for management of new onset A-fib with RVR. #New onset Afib with RVR [id number] score is 2. Lipid panel showed total cholesterol 137, LDL 75, HDL 50. TSH 6.06. Plan: ?Telemetry ? Diltiazem drip discontinued 11/30/24 ?Heparin drip discontinued 11/30/24 ?Diltiazem 60 mg 4 times daily ? Eliquis 5 mg twice daily ? Cardiology consulted, appreciate recs ? Echo ordered, pending - coagulation panel #Hypothyroidism 11/30/24: TSH 6.06 Plan: - will not start levothyroxine at this point due to Afib with RVR - Follow-up outpatient with PCP for management #Hypertension At the moment blood pressure is normal, holding home blood pressure medications. Plan: ? Diltiazem 60 mg QID #Right lower lobe liver lesion #Elevated bilirubin Patient denies abdominal pain. 11/30/24: T. bili 2.0 mg/dL. US abdomen showed large right lobe liver lesion with irregular margins, measuring 6.3 x 2.8 x 4.9 cm. Plan: ? Follow-up outpatient Health maintenance: FEN: cardiac DVT prophylaxis: Eliquis 5 BID GI prophylaxis: pantoprazole Dispo: telemetry CODE STATUS: full code Plan of care discussed with attending Dr. Ortega and PGY-[address] Montes. Gema Peng MD, PGY 1. -- ATTESTATION: I saw and examined the patient this morning, and I agree with current management stated by the resident. Will continue to monitor patient during their stay. Patient is a 79-year-old male that was admitted for A-fib with RVR that is now currently converted to sinus rhythm with a heart rate in the 60s. There is no chest pain or shortness of breath. With incision of the patient to Eliquis today and patient can likely be discharged tomorrow on oral medications pending echocardiogram results. Disclaimer: Despite multiple revisions, due to the dictation software being used, the document bellow may not be free of grammatical errors including phonetic/typographic errors. However, this does not deter from our commitment to providing health care in the patient's best interest in mind. Dr. Troy Montes, PGY-3 Attending Provider Attestation/Addendum I, Dolly Ortega, , attest that I was physically present for the conti portions of the service and evaluated the patient with the resident and I reviewed and discussed the case with the resident and agree with the resident's findings and plans of care as documented above Patient seen and evaluated this AM. He states that he is feeling well and denies any further symptoms of chest pain or lightheadedness. Patient converted to sinus rhythm on cardizem drip 15mg/hr. Will transition to 60mg PO QID. HR in the 60s while on the drip. Will also switch heparin to eliquis. Will continue cardiac monitoring and f/u with cardiology recommendations. Pending echocardiogram. Anticipate DC within next 24hrs if patient remains stable.
[2024-11-30 17:30] LABS: Partial Thromboplastin Time 30.8 Seconds (22.0-36.0)
[2024-11-30 23:46] LABS: Partial Thromboplastin Time 27.8 Seconds (22.0-36.0)
[2024-12-01] VITALS (9 sets, daily range): BP systolic 113–148; BP diastolic 56–93; PULSE 48–65; RESP 13–17; TEMP 36.1–36.6; O2SAT 91–98; BMI 28.8; BMI 28.7
[2024-12-01 05:38] LABS: Basophils % (Auto) 1 % (0-2.5); Eosinophils # (Auto) 0.3 Thou/mm3 (0.0-0.5); Eosinophils % (Auto) 4 % (0-10); Hematocrit 36.5 % (41.0-53.0); Hemoglobin 12.7 g/dL (13.5-16.0); Immature Granulocytes % (Auto) 0 % (0-0); Immature Granulocytes Auto 0.02 Thou/mm3 (0.00-0.00); Lymphocytes # (Auto) 1.6 Thou/mm3 (1.0-4.8); Lymphocytes % (Auto) 24 % (10-50); Mean Corpuscular HGB Conc 34.8 g/dl (31.0-37.0); Mean Corpuscular Hemoglobin 32.6 pg (25.0-35.0); Mean Corpuscular Volume 94 fL (80-100); Monocytes # (Auto) 0.7 Thou/mm3 (0.0-0.8); Monocytes % (Auto) 10 % (0-12); Neutrophils # (Auto) 4.1 Thou/mm3 (1.8-7.7); Neutrophils % (Auto) 61 % (37-80); Nucleated Red Blood Cell % 0 /100 WBC (0); Platelet Count 188 Thou/mm3 (140-440); RDW Standard Deviation 46.5 fL (35.1-43.9); Red Blood Count 3.89 Miln/mm3 (4.50-5.90); White Blood Count 6.7 Thou/mm3 (3.8-10.6)
[2024-12-01] MEDS: DILTIAZEM 30 MG TABLET 60 MG PO ×2 (05:42→14:46)
[2024-12-01] MEDS: LEVOTHYROXINE SODIUM 88 MCG TABLET PO (05:43)
[2024-12-01 05:53] LABS: Alanine Aminotransferase 10 U/L (10-49); Albumin, Serum 3.8 gm/dL (3.4-4.8); Albumin/Globulin Ratio 1.4 (1.2-2.2); Alkaline Phosphatase 69 U/L (46-116); Anion Gap 10 (7-16); Aspartate Amino Transferase 19 U/L (0-34); BUN/Creatinine Ratio 14 Ratio (12-20); Bilirubin,Total 1.8 mg/dL (0.3-1.2); Blood Urea Nitrogen 15 mg/dL (9-23); Calcium 8.6 mg/dL (8.3-10.6); Calcium (Corrected) 8.8 mg/dL (8.5-10.1); Carbon Dioxide 26.3 mMol/L (20.0-31.0); Chloride 102 mMol/L (98-107); Creatinine (Component) 1.1 mg/dL (0.6-1.3); Estimated Creatinine Clearance 54.5 mL/min (>60); Globulin 2.7 gm/dL (2.3-3.5); Glucose 103 mg/dL (74-106); Magnesium 2.2 mg/dL (1.6-2.6); Osmolality,Calculated 276 (275-295); Phosphorous 2.7 mg/dL (2.4-5.1); Potassium 3.5 mMol/L (3.4-5.1); Sodium 138 mMol/L (136-145); Total Protein 6.5 gm/dL (5.7-8.2); eGFR > 60 See Note
[2024-12-01 07:10] LABS: Partial Thromboplastin Time 27.9 Seconds (22.0-36.0)
--- NOTE | 2024-12-01 09:24 | ESPR_ITS ---
<Statement entered by Ashwini Martin MD - 12/02/24 13:44> I examined the patient with resident physician Dr. QUISPE PGY 2 agree with the treatment plan recommendation patient is converted to sinus rhythm with IV diltiazem was changed to oral diltiazem will get a cardiac echo for assessment LV function. All enzymes are negative no evidence of myocardial infarction patient will require a cardiac workup as an outpatient can be discharged home to have an echo as an outpatient. Documentation for date of: 12/01/24 Subjective Subjective Interval history: Patient evaluated at bedside, pending echocardiogram, which was ordered on , patient has no clinical signs of heart failure, the patient is anxious to go home, converted to sinus rhythm, maintained on diltiazem 60 mg 4 times daily, okay to discharge patient on diltiazem ER to 50 mg daily and anticoagulation with Eliquis, recommend urgent follow-up outpatient in cardiology office in 1 week and outpatient echocardiogram. Exam Vital Signs Temp Pulse Resp BP Pulse Ox O2 Del Method 97.1 F 48 L 14 125/68 91 L Room Air 12/01/24 08:00 12/01/24 08:00 12/01/24 08:00 12/01/24 08:00 12/01/24 08:00 12/01/24 08:00 Narrative Exam General: AOx3, cooperative, in no acute distress HEENT: Atraumatic/normocephalic, CHIKI, neck supple without masses Heart: RRR, no clicks or murmurs Lungs: Clear on auscultation bilaterally, no difficulty breathing Abdomen: Soft, nontender. Bowel sounds present on all quadrants, no organomegaly Skin: Intact, no cyanosis or edema noted Neuro: No focal neurological deficits noted Objective Labs 12/01/24 11:23 12/01/24 04:21 Labs: Laboratory Results - last 24 hr 11/30/24 11/30/24 12/01/24 16:58 23:09 04:21 WBC 6.7 RBC 3.89 L Hgb 12.7 L Hct 36.5 L MCV 94 MCH 32.6 MCHC 34.8 RDW Std Deviation 46.5 H Plt Count 188 Neut % (Auto) 61 Lymph % (Auto) 24 [place] % (Auto) 10 Eos % (Auto) 4 Baso % (Auto) 1 Neut # (Auto) 4.1 Lymph # (Auto) 1.6 [place] # (Auto) 0.7 Eos # (Auto) 0.3 Baso # (Auto) 0.0 Immature Gran # (Auto) 0.02 H Absolute Nucleated RBC 0.00 Immature Gran % 0 Nucleated RBC % 0 APTT 30.8 D 27.8 27.9 Sodium 138 Potassium 3.5 D Chloride 102 Carbon Dioxide 26.3 Anion Gap 10 BUN 15 Creatinine 1.1 Estim Creat Clear Calc 54.5 L eGFR > 60 BUN/Creatinine Ratio 14 Glucose 103 Calculated Osmolality 276 Calcium 8.6 Corrected Calcium 8.8 Phosphorus 2.7 Magnesium 2.2 Total Bilirubin 1.8 H AST 19 ALT 10 Alkaline Phosphatase 69 Total Protein 6.5 Albumin 3.8 Globulin 2.7 Albumin/Globulin Ratio 1.4 Quality Measures Quality Measures VTE prophylaxis Advance care planning discussed with:: patient Assessment & Plan Assessment Current Active Medications: Generic Name Dose Route Start Last Admin Trade Name Freq PRN Reason Stop Dose Admin Acetaminophen 650 mg 11/29/24 11:33 Acetaminophen 325 Mg Tablet PO 12/29/24 11:32 Q6H PRN PAIN SCALE 1-3 (mild Apixaban 5 mg 11/30/24 10:00 11/30/24 20:57 Apixaban 2.5 Mg Tablet PO 12/30/24 09:59 5 mg BID EMIGDIO Administration Diltiazem HCl 60 mg 11/30/24 12:00 12/01/24 05:42 Diltiazem 30 Mg Tablet PO 12/30/24 11:59 60 mg QID EMIGDIO Administration Levothyroxine Sodium 88 mcg 12/01/24 06:00 12/01/24 05:43 Levothyroxine Sodium 88 Mcg Tablet PO 12/31/24 05:59 88 mcg ACBR EMIGDIO Administration Ondansetron HCl 4 mg 11/29/24 11:33 Ondansetron Inj 2 Mg/Ml Inj 2 Ml IV 12/29/24 11:32 Q6H PRN NAUSEA OR VOMITING Protocol Pantoprazole Sodium 40 mg 11/29/24 11:45 11/30/24 09:34 Pantoprazole 40 Mg Tablet PO 12/29/24 11:44 40 mg QDAY EMIGDIO Administration Plan Patient is a 79-year-old Romanian-speaking male with history of hypertension, and hypothyroidism who presented to the ED with concerns of heartburn, was found to have atrial fibrillation with rapid ventricular response with a heart rate of 142. In ED, patient was treated with diltiazem 15 mg push and started on diltiazem drip, heart rate noted to fluctuate between 80s and 120s during examination. Certified wild animal caretaker [place] used ([place] [id number]) to assist with translation. Patient states that he does not have any heartburn at time of examination, but does state that the heartburn began around 12 in the afternoon yesterday. Denies any previous episodes, also denies any chest pain but states that the heartburn did not improve until he was treated here in the ED. No inciting factors reported, although patient states he consumed warm milk and cake prior to falling asleep, woke up feeling the discomfort in his epigastric region, no radiation reported. Patient denied any nausea, heartburn, chest pain, arm pain, dizziness, headaches, numbness/tingling, fever, or diarrhea. He also states that he did not have his morning medications. Patient does endorse following a glass deposition tender in [place] but states he only takes aspirin and blood pressure medications, no history of CVA reported. In ED, patient was found to have heart rate of 135 upon presentation, greater calcium 10.7, total bilirubin 1.8, glucose 150, and potassium 3.3 with troponin levels within normal range, EKG showing Atrial fibrillation with RvR. Cardiology consulted for new onset atrial fibrillation. #New-onset atrial fibrillation EKG in ED reveals Atrial fibrillation with RvR, heart rate 142. Patient denies history of atrial fibrillation, denies taking anticoagulation Troponin levels within normal range No chest pain endorsed Treated with IV 15mg diltiazem push, started on IV diltiazem drip CHADVASc score 3 (age, hypertension history) HAS-BLED score 0 Plan: - IV diltiazem drip for < 24 hours. Give additional diltiazem bolus (20mg x1) and increase drip rate to 15mg/hr. - IV diltiazem stopped once rhythm control achieved, transitioned to PO diltiazem 60mg QID - Eliquis 5mg BID if patient is agreeable to anticoagulation - Echocardiogram ordered, will consider alternate rhythm control medications if indicated - patient has no clinical signs of heart failure, the patient is anxious to go home, converted to sinus rhythm, maintained on diltiazem 60 mg 4 times daily, okay to discharge patient on diltiazem ER to 50 mg daily and anticoagulation with Eliquis, recommend urgent follow-up outpatient in cardiology office in 1 week and outpatient echocardiogram. #History of hypertension Home medications include amlodipine 10mg qday and valsartan/hctz 160/25 mg qday Plan: - Resume home medications as blood pressures allow - Continue PO diltiazem for atrial fibrillation #Hypercalcemia #Hyperbilirubinemia #History of Hypothyroidism - Management per primary team Patient case discussed with attending physician Dr. Mario Quispe PGY 2
[2024-12-01] MEDS: PANTOPRAZOLE 40 MG TABLET PO (09:30)
[2024-12-01] MEDS: APIXABAN 2.5 MG TABLET 5 MG PO (09:30)
[2024-12-01 11:41] LABS: Hematocrit 40.7 % (41.0-53.0); Hemoglobin 14.2 g/dL (13.5-16.0)
--- NOTE | 2024-12-01 16:01 | ESDS_ITS ---
<Statement entered by Dolly Ortega DO - 12/02/24 09:07> I, Dolly Oretga DO, attest that I was physically present for the conti portions of the service and evaluated the patient with the resident and I reviewed and discussed the case with the resident and agree with the resident's findings and plans of care as documented above <Statement entered by Josephine Jacob MD - 12/02/24 07:57> Patient was seen and examined by me personally. I have directly supervised and reviewed documentation by the team resident and agree with its findings with any exceptions or additional findings as below. Plan of care was discussed with the attending, Dr. Ortega. Patient appeared well, stable for discharge home, HR is rate controlled on diltiazem. Patient will start diltiazem extended release 240 mg once daily and Eliquis 5 mg BID. Stop all other antihypertensives at this time due to normotension while in hospital without needing these antihypertensives. Follow up with Dr. Martin in clinic for echocardiogram. Josephine Jacob, PGY-2 Planned Discharge Date 12/01/24 DS: Providers Provider Date of admission: 11/29/24 11:33 Primary care physician: Troy Olivares Admitting Provider: Dolly Ortega DO Attending Provider on Admission: Dolly Ortega DO Consults: 11/29/24 11:37 Consult to Cardiology Routine Comment: new onset afib Consulting Provider: Ashwini Martin Attending Provider on DC: Gema Peng MD Discharging Provider: Gema Peng MD DS: Diagnosis Problem List Completed Was Problem List Reviewed/Reconciled?: Yes Hospital Course Hospital Course Hospital course: The patient is a 79-year-old male with a previous medical history of hypertension who came to the ED on 11/29/2024 with chest pain that started the day before and was similar to the heartburn that he experienced before. In the morning, he chest pain worsened and he started to feel lightheaded and dizzy. In the ED he was hemodynamically stable, heart rate was in the 130s?150s, saturating well on room air, labs were significant for mild hypokalemia, creatinine 1.1 glucose 150, T. bili 1.8, corrected calcium 10.7, troponin 5 was negative twice, lipase was normal. EKG showed atrial fibrillation with RVR. Chest x-ray was negative for pneumonia or pulmonary edema. He was loaded with aspirin, received diltiazem push and was started on diltiazem drip. He reported significant improvement of chest pain, at the moment of examination he denied chest pain. He was admitted for treatment and management of new onset A-fib with RVR. Block Operator Dr. Martin was consulted, patient was started on heparin drip and diltiazem drip rate was increased. 12/01/2024 patient converted to the sinus rhythm, heparin and diltiazem drips were discontinued and patient was started on oral diltiazem and Eliquis. 12/01/24 Patient was seen and examined by the bedside, denies chest pain, palpitations, shortness of breath and was medically cleared for discharge. Hospital diagnoses: #New onset Afib with RVR #Hypothyroidism #Hypertension #Right lower lobe liver lesion #Elevated bilirubin Discharge recommendations: - Follow-up with your PCP in 1-2 weeks - Follow-up with deputy sheriff k9 handler Dr. Martin in 1-2 weeks - Schedule an Echocardiography at the Dr. Martin's office For clotting prevention: - Take Eliquis 5 mg per mouth twice a day - Avoid falls, traumas as taking blood thinners are increasing risk of bleeding For A-fib: - Take Diltiazem CD 240 mg per mouth once a day For hypertension: - Continue taking Diltiazem as prescribed - Stop taking Amlodipine 10 mg - Stop taking [place]art[place] 100 mg - Stop taking Valsartan-Hydrochlorothiazide 160-25 mg - Stop taking aspirin 325 mg ---- Per Google translate: Recomendaciones para el kiki: - Seguimiento con hansen m?dico de cabecera en 1-2 semanas - Seguimiento con el cardi?logo Dr. Martin en 1-2 semanas - Programe gene ecocardiograf?a en la consulta del Dr. Martin Para la prevenci?n de la coagulaci?n: - [place] Eliquis 5 mg por v?a oral dos veces al d?a - Evite ca?hagan y traumatismos, ya que joy anticoagulantes aumenta el riesgo de sangrado Para la fibrilaci?n auricular: - [place] Diltiazem CD 240 mg por v?a oral gene vez al d?a Para la hipertensi?n: - Contin?e tomando Diltiazem seg?n lo prescrito - [place]je [place] joy Amlodipino 10 mg - Deje de joy Losart?n 100 mg - Deje de joy Valsart?n-Hidroclorotiazida 160-25 mg - Deje de joy aspirina 325 mg Plan of care discussed with attending Dr. Ortega, PGY-[address] Jacob. Gema Peng MD, PGY 1. Time Spent with Patient Time attestation: Total time spent providing and/or coordinating discharge services: Time spent: Greater than 30 minutes Exam Vital Signs Temp Pulse Resp BP Pulse Ox O2 Del Method 97.0 F 55 L 15 141/66 H 98 Room Air 12/01/24 11:57 12/01/24 14:46 12/01/24 11:57 12/01/24 14:46 12/01/24 11:57 12/01/24 11:57 Narrative Exam Physical Exam General: Awake and in no acute distress. Conversational and non-toxic appearing. HEENT: Normocephalic, atraumatic, mucous membranes moist. Heart: Regular rate and rhythm, no murmurs. Lungs: Clear to auscultation with no wheezing or crackles. Abdomen: Soft, nondistended, nontender, positive bowel sounds. ?No guarding or rebound tenderness. Neurologic: Alert and oriented x3, no gross neurological deficit, and patient able to move all 4 extremities. Extremities: No edema. Skin: No rash or ecchymoses. Discharge Plan Plan Patient Disposition: HOME (Self Care) Patient condition on transfer: Stable Care Plan Goals: Discharge recommendations: - Follow-up with your PCP in 1-2 weeks - Follow-up with deputy sheriff k9 handler Dr. Martin in 1-2 weeks - Schedule an Echocardiography at the Dr. Martin's office For clotting prevention: - Take Eliquis 5 mg per mouth twice a day - Avoid falls, traumas as taking blood thinners are increasing risk of bleeding For A-fib: - Take Diltiazem CD 240 mg per mouth once a day For hypertension: - Continue taking Diltiazem as prescribed - Stop taking Amlodipine 10 mg - Stop taking [place] 100 mg - Stop taking Valsartan-Hydrochlorothiazide 160-25 mg - Stop taking aspirin 325 mg ---- Per Google translate: Recomendaciones para el kiki: - Seguimiento con hansen m?dico de cabecera en 1-2 semanas - Seguimiento con el cardi?logo Dr. Martin en 1-2 semanas - Programe gene ecocardiograf?a en la consulta del Dr. Martin Para la prevenci?n de la coagulaci?n: - [place] Eliquis 5 mg por v?a oral dos veces al d?a - Evite ca?hagan y traumatismos, ya que joy anticoagulantes aumenta el riesgo de sangrado Para la fibrilaci?n auricular: - [place] Diltiazem CD 240 mg por v?a oral gene vez al d?a Para la hipertensi?n: - Contin?e tomando Diltiazem seg?n lo prescrito - [place] Amlodipino 10 mg - Deje de joy Losart?n 100 mg - Deje de joy Valsart?n-Hidroclorotiazida 160-25 mg - Deje de joy aspirina 325 mg Prescriptions/Referrals Prescriptions/Med Rec: New levothyroxine 88 mcg Tablet 88 mcg PO ACBR 30 Days Qty: 30 0RF Eliquis 5 mg tablet 5 mg PO BID 30 Days Qty: 60 2RF diltiazem HCl 240 mg capsule,extended release 24hr 240 mg PO QAM 30 Days Qty: 30 2RF Discontinued losartan 100 mg Tablet 100 mg PO QDAY azithromycin 250 mg tablet See Rx Instructions .ROUTE .COMPLEX Qty: 6 0RF Rx Instructions: take 500 mg today (day 1), then 250 mg for 4 days (days 2-5) psyllium husk 3.4 gram/5.4 gram powder 1 tbsp PO QDAY Qty: 283 0RF Rx Instructions: mix into at least 8 oz of water or juice before administering ibuprofen 600 mg tablet 600 mg PO QID PRN (Reason: fever or pain) Qty: 30 0RF aspirin 325 mg tablet,delayed release (DR/EC) 325 mg PO DAILY Patient Comments: TAKE ONE TABLET BY MOUTH EVERY DAY amlodipine 10 mg tablet 10 mg PO DAILY Patient Comments: TAKE ONE TABLET BY MOUTH EVERY DAY FOR BLOOD PRESSURE valsartan-hydrochlorothiazide 160-25 mg tablet 1 tab PO DAILY Patient Comments: TAKE ONE TABLET BY MOUTH EVERY DAY FOR BLOOD PRESSURE Referrals: Troy Millard [Primary Care Provider] - Ashwini Martin MD [Physician] - Patient/Caregiver Discharge Instructions Discharge Activity: activity as tolerated Education Materials: Using Blood Thinners Anticoagulants, AFL/Afib, Stroke Prevent Live W Atrial Fib Print Language: Uzbek Stand Alone Forms: Gi Award Info., Patient Portal Info Letter Discharge Order Discharge Orders: Discharge (Routine); Ordered 12/01/24 Ordered By: Josephnie Jacob Quality Discharge Quality Measures VTE prophylaxis
== END 2024-12-01 17:30 | disposition home or self-care (01) | DRG 310 ==
LOC: SERX 11:01 → SERHOLD 12:10 → S2NX 11-30 01:09
PROVIDERS: Student in an Organized Health Care Education/Training Program; Admitting Provider Internal Medicine; Emergency Provider Emergency Medicine; PCP Physician Assistant; Visit Provider Internal Medicine
DX: I48.91 Unspecified atrial fibrillation (principal); I10 Essential (primary) hypertension; E83.52 Hypercalcemia; K76.9 Liver disease, unspecified; E03.9 Hypothyroidism, unspecified; E80.6 Other disorders of bilirubin metabolism; E87.6 Hypokalemia; Z87.891 Personal history of nicotine dependence; Z79.899 Other long term (current) drug therapy; Z79.01 Long term (current) use of anticoagulants; Z79.82 Long term (current) use of aspirin
CPT/HCPCS: 36415; 71045; 76700; 80053; 80061; 83735; 84100; 84443; 84484; 85014; 85018; 85025; 85610; 85730; 93005; 96372; 96374; 99291; J1643; J1644; J3475; J3490; A9270

== ENCOUNTER 2024-12-23 22:16 | Emergency (ER) | payer MEDICARE, MEDICAID, SELFPAY ==
[2024-12-23 22:18] VITALS: BMI 30.2
[2024-12-23 22:35] VITALS: BP 187/79; BP 201/87; PULSE 60; RESP 20; TEMP 36.4; O2SAT 95
--- NOTE | 2024-12-23 22:37 | XR_ITS ---
Examination: Abdomen sonogram, Limited Date and time of exam: December 23, 2024 10:51 PM Indications: Onset right upper abdominal pain back pain beginning one week ago Technique: Real-time chen scale transabdominal sonographic images of the upper abdomen obtained. Findings: Absent gallbladder Common bile duct 0.7 cm no stones Pancreatic head 3.1 Liver 16.15 infiltration irregular contour, Limited visualization Normal hepatopedal portal venous flow Patent IVC Impression: Limited study No common bile duct stones Primary hepatocellular disease CT examination pre and postcontrast liver follow-up would best assess for liver lesion
--- NOTE | 2024-12-23 22:38 | EKG_ITS ---
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
--- NOTE | 2024-12-23 22:38 | PD.EDRME ---
Rapid Medical Screening Exam RME Arrival date/time: 12/23/24 22:16 79 yo m present to ED for c/o ruq/back pain I have greeted and performed a focused initial assessment of this patient. A comprehensive ED assessment and evaluation of the patient, analysis of all test results, and completion of the medical decision making process will be conducted by additional ED providers. Chief Complaint: Back Pain/Injury Time Seen by Provider: 12/23/24 22:21 Vital signs: Vital Signs Temperature 97.6 F 12/23/24 22:35 Pulse Rate 60 12/23/24 22:35 Respiratory Rate 20 12/23/24 22:35 Blood Pressure 201/87 H 12/23/24 22:35 Pulse Oximetry (%) 95 12/23/24 22:35 Oxygen Delivery Method Room Air 12/23/24 22:35
[2024-12-23] MEDS: HYDROcodone/APAP 5/325 TABLET 1 TAB PO (23:00)
[2024-12-23] MEDS: ONDANSETRON ODT 4 MG TABRAP PO (23:01)
[2024-12-23 23:34] LABS: Basophils % (Auto) 0 % (0-2.5); Eosinophils % (Auto) 0 % (0-10); Hematocrit 40.4 % (41.0-53.0); Immature Granulocytes % (Auto) 0 % (0-0); Immature Granulocytes Auto 0.04 Thou/mm3 (0.00-0.00); Lymphocytes # (Auto) 1.3 Thou/mm3 (1.0-4.8); Lymphocytes % (Auto) 11 % (10-50); Mean Corpuscular HGB Conc 34.7 g/dl (31.0-37.0); Mean Corpuscular Hemoglobin 32.6 pg (25.0-35.0); Mean Corpuscular Volume 94 fL (80-100); Monocytes # (Auto) 0.8 Thou/mm3 (0.0-0.8); Monocytes % (Auto) 7 % (0-12); Neutrophils # (Auto) 10.1 Thou/mm3 (1.8-7.7); Neutrophils % (Auto) 82 % (37-80); Nucleated Red Blood Cell % 0 /100 WBC (0); Platelet Count 248 Thou/mm3 (140-440); RDW Standard Deviation 46.8 fL (35.1-43.9); Red Blood Count 4.29 Miln/mm3 (4.50-5.90); White Blood Count 12.4 Thou/mm3 (3.8-10.6)
[2024-12-23 23:47] LABS: Alanine Aminotransferase 35 U/L (10-49); Albumin, Serum 4.6 gm/dL (3.4-4.8); Albumin/Globulin Ratio 1.6 (1.2-2.2); Alkaline Phosphatase 119 U/L (46-116); Anion Gap 10 (7-16); Aspartate Amino Transferase 44 U/L (0-34); BUN/Creatinine Ratio 19 Ratio (12-20); Bilirubin,Total 1.6 mg/dL (0.3-1.2); Blood Urea Nitrogen 28 mg/dL (9-23); Calcium 9.5 mg/dL (8.3-10.6); Calcium (Corrected) 9.5 mg/dL (8.5-10.1); Carbon Dioxide 23.6 mMol/L (20.0-31.0); Chloride 104 mMol/L (98-107); Creatinine (Component) 1.5 mg/dL (0.6-1.3); Estimated Creatinine Clearance 39.5 mL/min (>60); Globulin 2.9 gm/dL (2.3-3.5); Glucose 144 mg/dL (74-106); Lipase 30 U/L (12-53); Osmolality,Calculated 284 (275-295); Potassium 4.1 mMol/L (3.4-5.1); Sodium 138 mMol/L (136-145); Total Protein 7.5 gm/dL (5.7-8.2); Troponin I < 0.020 ng/mL (0.0-0.045); eGFR 47 See Note
[2024-12-23 23:58] VITALS: BP 188/86; PULSE 54; RESP 18; TEMP 36.7; O2SAT 96
[2024-12-24] VITALS (13 sets, daily range): BP systolic 154–190; BP diastolic 67–101; PULSE 51–86; RESP 16–24; TEMP 35.9–37.1; O2SAT 92–97
--- NOTE | 2024-12-24 | XR_ITS ---
MRI abdomen, without contrast. MRCP Date and time of exam: December 24, 2024 1114 hours INDICATIONS: Intermittent right upper abdominal pain radiating to the back today, CT chest abdomen pelvis this morning right lobe liver lesion, enlarged common bile duct with sludge versus stones in the common bile duct Technique: Multiple axial and coronal images of the abdomen have been obtained with the Siemens 1.5T MRI scanner. Images obtained included T1 weighted transverse images, T2-weighted transverse images, T2-weighted transverse images fat-suppressed, T2 weighted haste fat suppressed transverse images, T1 weighted images, in and out of phase images, T2-weighted coronal images, breath hold, T2 weighted haze coronal images as well as T2 weighted coronal thick slab images, MRCP. Findings: 4.9 x 4.6 cm right lobe liver lesion Intrahepatic biliary tract dilatation Absent gallbladder Enlarged common hepatic common bile duct measuring up to 18 mm Abrupt termination of the distal common bile duct No definite stones in the common bile duct No pancreatic mass, no dilated pancreatic duct Spleen is not enlarged No ascites IMPRESSION: 4.9 x 4.6 cm right lobe liver lesion, differential would include primary hepatocellular carcinoma, hepatic metastasis Enlarged common hepatic common bile duct with abrupt termination of the distal common bile duct, differential would include malignant stricture at the ampulla, recommend ERCP/biopsies follow-up
--- NOTE | 2024-12-24 00:08 | PRELIM_ITS ---
Right upper quadrant abdominal ultrasound with Doppler and wave Doppler spectral analysis. December 23, 2024 at 2251 hours Clinical history: Right upper quadrant pain hx gallstone. Technique: Grayscale and color flow images of the right upper quadrant are provided. Hepatic and portal veins were also imaged with color flow images. Comparison: No prior study is available for comparison. Findings: Very limited study. Irregular liver margins. Fatty liver. Status post cholecystectomy. The common bile duct is normal in caliber at 6.5 mm. The pancreas is unremarkable to the extent visualized. The right kidney is not well-visualized. The portal vein is patent with hepatopetal flow and normal wave Doppler spectral analysis. Impression: Very limited study. Cirrhosis. Report Electronically Signed By: Edward Mendoza 12/24/2024 12:07:45 AM [EST]
--- NOTE | 2024-12-24 00:37 | PD.EDBACK ---
ED Back Injury Pain RME/HPI General Chief Complaint: Back Pain/Injury Stated Complaint: back pain Time Seen by Provider: 12/23/24 22:21 Arrival date/time: 12/23/24 22:16 RME / HPI RME / HPI Narrative: 12/23/24 22:16 79 yo m present to ED for c/o ruq/back pain I have greeted and performed a focused initial assessment of this patient. A comprehensive ED assessment and evaluation of the patient, analysis of all test results, and completion of the medical decision making process will be conducted by additional ED providers. Dr. Barragan HPI: 79-year-old male with below history presents with left-sided back spasm x 1 day. Patient states he was out today walking around. Denies new trauma No fevers No unexplained weight loss of night sweats No recent surgeries or recurrent bacterial infections No IVDU Patient is not immunocompromised Denies any new focal neurological deficits or new motor weakness Denies bowel or bladder incontinence or saddle anesthesia LOCATION: Left upper back SEVERITY: Symptoms are described as being severe with limitations on activities of daily living QUALITY: Symptoms are described as being sharp CONTEXT: The patient is unable to identify any inciting events. DURATION/TIMING: The symptoms started approximately one day ago and have been intermittent this then. ASSOCIATED SYMPTOMS: The patient is unable to identify any other associated symptoms. MODIFYING FACTORS: The patient is unable to identify any alleviating or aggravating symptoms. PERTINENT ROS: no fevers, no IVDU, denies any ripping or tearing sensations, no associated abdominal pain, no focal neurological deficits and denies any saddle anesthesia, and no bowel or bladder incontinence Past medical history: thyroid disease A-fib with RVR on Eliquis Biliary colic, Hypertension, Social history previous drinker in the past but not currently. Non-smoker. Surgical history Denies PCP: [facility] Related Data Previous Rx's ?Medication ?Instructions ?Recorded apixaban 5 mg tablet (Eliquis) 5 mg PO BID atrial fibrillation 30 12/01/24 days #60 tabs diltiazem HCl 240 mg 240 mg PO QAM 30 days #30 caps 12/01/24 capsule,extended release 24 hr levothyroxine 88 mcg tablet 88 mcg PO ACBR 30 days #30 tabs 12/01/24 Allergies Allergy/AdvReac Type Severity Reaction Status Date / Time No Known Allergies Allergy Verified 12/23/24 22:23 Review of Systems Review of Systems Systems Reviewed: All systems reviewed, normal except as documented ED Exam Narrative Physical exam: General: Non-toxic, well appearing, in no acute distress, and appears state age and well developed and well nourished. Vital signs: Normal. Head: Normocephalic and atraumatic. Eyes: Aproptotic, extraocular movements intact, and pupils equally round. Nose: Nares without evidence of rhinorrhea. Neck: Supple without menigismus without lympadenopathy. Heart: Regular rate and rhythm without murmur, gallops, or rubs. Lungs: Clear to auscultation without wheezing, rales, or rhonchi. Abdomen: Soft, nontender, normal bowel sounds, no masses, and not distended. Back: left greater then right paraspinous No mid line tenderness or deformities. No costovertebral angle tenderness. Neurologic: Alert and oriented to person, place, and time. Sensation to light touch intact in all extremities. No saddle anesthesia. Deep tendon reflexes 2/4 bilaterally. Strength 5/5 bilaterally. Gait antalgic secondary to back pain. Extremities: no cyanosis or edema. Skin: no rashes, ecchymosis, or lesions. Back Exam Back exam: Present muscle spasm (Left upper back); Absent CVA tenderness (R), CVA tenderness (L) or vertebral tenderness Course Quality Measures none Orders Category Date Time Status CT Screening NOW Care 12/24/24 01:25 Active EKG (ED ONLY) *Do not use* NOW Care 12/23/24 22:38 Completed MRI Screening NOW Care 12/24/24 05:40 Active Referral - Abstract Writer Stat Cons 12/24/24 12:[address] angio chest abdomen pelvis Stat Exams 12/24/24 01:24 Completed EKG (ED Only) Stat Exams 12/23/24 22:38 Draft MR MRCP Stat Exams 12/24/24 Completed US abdomen limited Stat Exams 12/23/24 22:37 Completed Blood Culture (Lab) Stat Lab 12/24/24 10:29 Received CBC [CBC] Stat Lab 12/23/24 23:07 Completed CMP [Comprehensive Metabolic Panel] Stat Lab 12/23/24 23:07 Completed Lipase Stat Lab 12/23/24 23:07 Completed Troponin I Stat Lab 12/23/24 23:07 Completed UA [Urinalysis] Stat Lab 12/24/24 03:44 Completed Diltiazem Cd [Cardizem Cd] Med 12/24/24 17:26 Discontinued 240 mg PO X1 ONE HYDROcodone*/APAP 5/325 [[place] 5/325] Med 12/23/24 22:38 Discontinued 1 tab PO X1 ONE Morphine Inj Med 12/24/24 00:45 Discontinued 4 mg IVP X1 ONE Morphine Inj Med 12/24/24 10:35 Discontinued 4 mg IVP X1 ONE Morphine Inj Med 12/24/24 19:09 Discontinued 4 mg IVP X1 ONE Morphine Inj Med 12/24/24 06:24 Discontinued 5 mg IVP X1 ONE Morphine Inj Med 12/24/24 10:35 Discontinued 5 mg IVP X1 ONE Ondansetron Inj [Zofran Inj] Med 12/24/24 06:24 Discontinued 4 mg IV X1 ONE Ondansetron Inj [Zofran Inj] Med 12/24/24 10:35 Discontinued 4 mg IV X1 ONE Ondansetron Inj [Zofran Inj] Med 12/24/24 19:09 Discontinued 4 mg IV X1 ONE Ondansetron Odt [Zofran Odt] Med 12/23/24 22:38 Discontinued 4 mg PO X1 ONE Piper/Tazo Inj [Zosyn Inj] 3.375 gm Med 12/24/24 06:00 Discontinued SODIUM CHLORIDE 0.9% (Popper) [Ns 0.9% (P)] 50 ml IV X1 Sodium Chloride 0.9% 1000 ml [Ns] 1,000 ml Med 12/24/24 15:14 Active IV 125 mls/hr Sodium Chloride 0.9% 1000 ml [Ns] 1,000 ml Med 12/24/24 00:45 Discontinued IV 999 mls/hr hydrALAZINE INJ [Apresoline Inj] Med 12/24/24 13:43 Discontinued 10 mg IV X1 ONE hydrALAZINE INJ [Apresoline Inj] Med 12/24/24 17:12 Discontinued 10 mg IV X1 ONE hydrALAZINE INJ [Apresoline Inj] Med 12/24/24 06:06 Discontinued 20 mg IV X1 ONE Vital Signs Vital signs: Vital Signs Temperature 97.6 F 12/23/24 22:35 Pulse Rate 60 12/23/24 22:35 Respiratory Rate 20 12/23/24 22:35 Blood Pressure 201/87 H 12/23/24 22:35 Pulse Oximetry (%) 95 12/23/24 22:35 Oxygen Delivery Method Room Air 12/23/24 22:35 Back Pain / Injury MDM Narrative MDM Narrative:: 79-year-old male with history of thyroid disease, biliary colic, hypertension, atrial fibrillation on Eliquis presenting to the emergency department with left back pain x 1 day. Differential diagnosis includes aortic aneurysm or dissection, kidney stone, pyelonephritis, musculoskeletal, Doubt discitis, epidural abscess, or cauda equina, or trauma. EDC: The patient is placed in the bed. His vitals are reviewed initial blood pressure is 201/87. Heart rate is 54. The patient is afebrile and 97.6. LABS: Labs are reviewed and interpretedby me. white count of 12 which is slightly increased and abnormal. Hemoglobin and hematocrit are normal at 14/40. Patient has a BUN/creatinine of 28/1.5. This is reviewed and compared to his previous which shows similar elevated creatinine at 1.8. Patient has been, troponin x 1. LFTs are elevated. Lipase normal. UA: Pending. Plan: Patient is treated with IV fluids, morphine x 4 mg. 0100: CT angio chest abdomen pelvis are performed. 0600: MRCP pending. Signed out to Dr. Goodrich, [facility] emergency department pending MRCP for abnormal LFTs, abdominal pain, abnormal CAT scan, reevaluation, and final disposition. Patient data External records reviewed:: [facility] previous records (Patient seen previously in the emergency department in November 2024 for new onset A-fib) Clinical information provided by:: patient and family Social determinants that could affect healthcare access:: none Patient has the following chronic illnesses:: Hypertension, atrial fibrillation, thyroid disease How is presenting disease/condition affected by chronic disease/condition?: exacerbated by Evaluation data The following diagnostics were reviewed and interpreted by me:: lab results, radiology exam(s) and EKG tracing(s) Lab and/or radiology exams considered but not ordered:: None Interpretation Summary: EKG without ST elevation TX. See [facility] for lab values. RADS: CT abdomen chest pelvis. Findings: The thoracic aorta demonstrates mild atheromatous calcification without evidence of dissection or aneurysm. The origins of the right brachiocephalic, left common carotid and left subclavian arteries are patent. The abdominal aorta demonstrates mild atheromatous calcification without evidence of dissection or aneurysm. The celiac, superior mesenteric, inferior mesenteric and bilateral renal arteries are patent to the extent visualized. The common iliac, external iliac and internal iliac arteries are patent bilaterally. There is no filling defect within the pulmonary artery divisions to suggest pulmonary thromboembolism. No evidence of mediastinal mass or lymphadenopathy. There is no pericardial effusion. Bilateral lower lobes consolidation. Consolidation in the lingula. No evidence of pleural effusion or pneumothorax. The spleen, pancreas, and adrenals are unremarkable. Small bilateral renal simple lesions. No hydronephrosis. Irregular liver margins. Status post cholecystectomy. Dilated CBD measuring up to 1.5 cm. Probable choledocholithiasis. Hypodense lesion in the segment 4 of the liver measures 4.8 cm. No evidence of bowel obstruction. The appendix is within normal limits. There is no significant mesenteric or retroperitoneal adenopathy. Multiple stones noted in the urinary bladder. There is no free fluid, free air or abscess. The osseous structures are unremarkable. Dilated left atrium. Coronary arteries calcifications. Enlarged prostate. Impression: No evidence of aortic dissection or aneurysm. No evidence of pulmonary thromboembolism. Multifocal pneumonia. Dilated left atrium. Coronary arteries calcifications. If acute myocardial infarction is clinically suspected consider correlation with troponin. Indeterminant liver lesion suspicious for primary liver cancer versus abscess. Further evaluation is recommended. Probable choledocholithiasis associated with biliary duct dilation. Correlation of MRCP should be considered. Multiple stones in the urinary bladder, consider cystitis in the differential diagnosis. Enlarged prostate. Consider correlation with PSA. Medications / Prescriptions Medications or Prescriptions considered but not ordered:: None Medication administrations:: Medication Administration History Sodium Chloride (Ns) 1,000 mls @ 125 mls/hr IV .Q8H ONE Stop: 12/24/24 23:13 Last Admin: 12/24/24 15:22 Dose: 125 mls/hr Documented By: KM Discontinued Medications Hydrocodone Bitart/Acetaminophen (Hydrocodone/Apap 5/325 Tablet) 1 tab PO X1 ONE Stop: 12/23/24 22:39 Last Admin: 12/23/24 23:00 Dose: 1 tab Documented By: EDER Diltiazem HCl (Diltiazem Cd 120 Mg Capcr) 240 mg PO X1 ONE Stop: 12/24/24 17:27 Last Admin: 12/24/24 17:38 Dose: 240 mg Documented By: MOE Hydralazine HCl (Hydralazine Inj 20 Mg/Ml Vial) 20 mg IV X1 ONE Stop: 12/24/24 06:07 Last Admin: 12/24/24 14:06 Dose: Not Given Documented By: MOE Non-Admin Reason: Cancelled by Provider Hydralazine HCl (Hydralazine Inj 20 Mg/Ml Vial) 10 mg IV X1 ONE Stop: 12/24/24 13:44 Last Admin: 12/24/24 14:20 Dose: 10 mg Documented By: MOE Hydralazine HCl (Hydralazine Inj 20 Mg/Ml Vial) 10 mg IV X1 ONE Stop: 12/24/24 17:13 Last Admin: 12/24/24 17:19 Dose: 10 mg Documented By: MOE Sodium Chloride (Ns) 1,000 mls @ 999 mls/hr IV .Q1H1M ONE Stop: 12/24/24 01:45 Last Infusion: 12/24/24 02:30 Dose: Infused Documented By: Admin: 12/24/24 00:52 Dose: 999 mls/hr Documented By: OSWALDO Piperacillin Sod/Tazobactam (Sod 3.375 gm/ Sodium Chloride) 50 mls @ 100 mls/hr IV X1 ONE Stop: 12/24/24 06:29 Last Infusion: 12/24/24 06:57 Dose: Infused Documented By: Admin: 12/24/24 06:20 Dose: 100 mls/hr Documented By: DEANA Morphine Sulfate (Morphine Sulf Inj 10 Mg/Ml Vial) 4 mg IVP X1 ONE Stop: 12/24/24 00:46 Last Admin: 12/24/24 00:54 Dose: 4 mg Documented By: OSWALDO Morphine Sulfate (Morphine Sulf Inj 10 Mg/Ml Vial) 5 mg IVP X1 ONE Stop: 12/24/24 06:25 Last Admin: 12/24/24 06:34 Dose: 5 mg Documented By: EDER Morphine Sulfate (Morphine Sulf Inj 10 Mg/Ml Vial) 4 mg IVP X1 ONE Stop: 12/24/24 10:36 Last Admin: 12/24/24 10:37 Dose: Not Given Documented By: MOE Non-Admin Reason: DOSE CHANGED Morphine Sulfate (Morphine Sulf Inj 10 Mg/Ml Vial) 5 mg IVP X1 ONE Stop: 12/24/24 10:36 Last Admin: 12/24/24 10:40 Dose: 5 mg Documented By: MOE Morphine Sulfate (Morphine Sulf Inj 10 Mg/Ml Vial) 4 mg IVP X1 ONE Stop: 12/24/24 19:10 Last Admin: 12/24/24 19:26 Dose: 4 mg Documented By: DOROTHY Ondansetron HCl (Ondansetron Odt 4 Mg Tabrap) 4 mg PO X1 ONE; Protocol Stop: 12/23/24 22:39 Last Admin: 12/23/24 23:01 Dose: 4 mg Documented By: EDER Ondansetron HCl (Ondansetron Inj 2 Mg/Ml Inj 2 Ml) 4 mg IV X1 ONE Stop: 12/24/24 06:25 Last Admin: 12/24/24 06:34 Dose: 4 mg Documented By: EDER Ondansetron HCl (Ondansetron Inj 2 Mg/Ml Inj 2 Ml) 4 mg IV X1 ONE; Protocol Stop: 12/24/24 10:36 Last Admin: 12/24/24 10:40 Dose: 4 mg Documented By: MOE Ondansetron HCl (Ondansetron Inj 2 Mg/Ml Inj 2 Ml) 4 mg IV X1 ONE; Protocol Stop: 12/24/24 19:10 Last Admin: 12/24/24 19:27 Dose: 4 mg Documented By: DOROTHY as directed Consultations Consultation(s) initiated? (list below): No Diagnosis Most likely diagnosis given after review of the tests above:: See MDM Admission Indicated Admission indicated?: not indicated (Patient signed out at 0 600 pending final disposition.) Admission Request Was there a request for admission?: No Disposition Plan Disposition Plan: other (specify) (Signed out pending final disposition) Discharge Plan Plan Disposition Comment: Stable at signout Prescriptions/Referrals Prescriptions/Med Rec: No Action levothyroxine 88 mcg Tablet 88 mcg PO ACBR 30 Days Qty: 30 0RF Eliquis 5 mg tablet 5 mg PO BID 30 Days Qty: 60 2RF diltiazem HCl 240 mg capsule,extended release 24hr 240 mg PO QAM 30 Days Qty: 30 2RF Referrals: No Primary/Family,Physician [Primary Care Provider] - In 1 week Problem List Clinical Impression: Upper back pain on left side, Multifocal pneumonia, Lesion of liver, Common bile duct dilatation, Elevated LFTs Patient/Caregiver Discharge Instructions Print Language: Uzbek
[2024-12-24] MEDS: SODIUM CHLORIDE 0.9% 1000 ML 1,000 ML 999 ML IV (00:52)
[2024-12-24] MEDS: MORPHINE SULF INJ 10 MG/ML VIAL 4 MG IVP ×2 (00:54→19:26)
--- NOTE | 2024-12-24 01:24 | XR_ITS ---
Examination: CTA chest, with intravenous contrast. CTA abdomen, with intravenous contrast. CTA pelvis, with intravenous contrast. 2-D sagittal and coronal reconstructions. 3-D reconstructions. Date and time of exam: December 25, 2019 5033 hrs. Indications: Onset chest and back pain today, patient is anticoagulated CTDI vol (mgy) 18.47 DLP (MGycm) 1325 Technique: Multiple CTA images, 2.0 mm slice thickness, obtained chest, abdomen, pelvis, with the high-resolution 64 slice scanner. 60 cc Isovue-300 is administered intravenously. Sagittal and coronal 2-D reconstructions are obtained. 3-D reconstructions, angiographic images are obtained. 3-D postprocessing, including vascular maximum intensity projections. Low dose protocols were performed. One or more of the following dose reduction techniques were used; automated exposure control, adjustment of the mA and/or KV according to patient size, use of iterative reconstruction technique. Findings: No thoracic aortic aneurysm dilatation or dissection No pulmonary artery filling defects Minimal left hilar lymphadenopathy Bilateral pneumonia most prominent at the lung bases and lingula No significant pleural disease 4 cm solid anterior right lobe liver lesion Absent gallbladder Common bile duct is enlarged at least 15 mm with densities in the common bile duct No pancreatic mass No hydronephrosis Moderate renal parenchymal scar formation Abdominal aortic calcification No bowel obstruction Normal appendix Distended urinary bladder with multiple small bladder calculi Significant prostatomegaly AP dimension 5.4 cm Impression: Negative for pulmonary artery emboli Significant bilateral pneumonia 4 cm solid anterior right lobe liver lesion, differential would include primary hepatocellular carcinoma, liver metastasis Recommend MRI abdomen liver follow-up pre and postcontrast Recommend MRCP follow-up to confirm stones in the common bile duct which is enlarged Distended urinary bladder with multiple small bladder calculi Significant prostatomegaly
[2024-12-24 03:53] LABS: Bilirubin,Urine Negative (Negative); Blood,Urine Negative (Negative); Clarity,Urine Clear (Clear/Hazy); Collection Type, Urine Voided; Color,Urine Yellow (Lt Yel-Yel); Glucose, Urine Negative (Negative); Ketones,Urine Negative (Negative); Leukocyte Esterase,Urine Negative (Negative); Nitrite,Urine Negative (Negative); Protein,Urine Negative (Neg - Trace); RBC,Urine 3 /hpf (0-3); Squamous Epithelial Cell,Urine 0 /hpf (0-5); Urobilinogen,Urine Negative mg/dL (0.0-1.0); WBC,Urine 2 /hpf (0-5)
--- NOTE | 2024-12-24 05:08 | PRELIM_ITS ---
CT angiogram of the chest, abdomen and pelvis without and with intravenous contrast (axial sections with sagittal and coronal reformats) December 24, 2024 0323 hours Clinical History: 79-year-old male with chest pain. Comparison: Ultrasound of December 23, 2024. Findings: The thoracic aorta demonstrates mild atheromatous calcification without evidence of dissection or aneurysm. The origins of the right brachiocephalic, left common carotid and left subclavian arteries are patent. The abdominal aorta demonstrates mild atheromatous calcification without evidence of dissection or aneurysm. The celiac, superior mesenteric, inferior mesenteric and bilateral renal arteries are patent to the extent visualized. The common iliac, external iliac and internal iliac arteries are patent b ilaterally. There is no filling defect within the pulmonary artery divisions to suggest pulmonary thromboembolism. No evidence of mediastinal mass or lymphadenopathy. There is no pericardial effusion. Bilateral lower lobes consolidation. Consolidation in the lingula. No evidence of pleural effusion or pneumothorax. The spleen, pancreas, and adrenals are unremarkable. Small bilateral renal simple lesions. No hydronephrosis. Irregular liver margins. Status post cholecystectomy. Dilated CBD measuring up to 1.5 cm. Probable choledocholithiasis. Hypodense lesion in the segment 4 of the liver measures 4.8 cm. No evidence of bowel obstruction. The appendix is within normal limits. There is no significant mesenteric or retroperitoneal adenopathy. Multiple stones noted in the urinary bladder. There is no free fluid, free air or abscess. The osseous structures are unremarkable. Dilated left atrium. Coronary arteries calcifications. Enlarged prostate. Impression: No evidence of aortic dissection or aneurysm. No evidence of pulmonary thromboembolism. Multifocal pneumonia. Dilated left atrium. Coronary arteries calcifications. If acute myocardial infarction is clinically suspected consider correlation with troponin. Indeterminant liver lesion suspicious for primary liver cancer versus abscess. Further evaluation is recommended. Probable choledocholithiasis associated with biliary duct dilation. Correlation of MRCP should be considered. Multiple stones in the urinary bladder, consider cystitis in the differential diagnosis. Enlarged prostate. Consider correlation with PSA. Discussion Details: Results verbally communicated to : Dr. Landa at 05:01 AM 12/24/2024 Report Electronically Signed By: Edward Mendoza 12/24/2024 5:07:48 AM [EST]
--- NOTE | 2024-12-24 06:14 | PD.EDADDENDU ---
Emergency Room Addendum Addendum Narrative: 0600: Care assumed from Dr. Landa, the previous shift emergency physician. Past medical, surgical, social and family history reviewed. Vitals and home medications reviewed. I will assume the care of the patient at this time. Please refer to the emergency department record for history and examination from initial visit.? Physical exam by me shows patient under no acute distress at this time. 1720: Patient got accepted for transfer to [facility]. RADIOLOGY Procedure(s): MR MRCP Accession Number(s): [id number] cc: Americo Thompson MD; NO PRIMARY/FAMILY,PHYSICIAN; Agata Landa MD~ MRI abdomen, without contrast. MRCP Date and time of exam: December 24, 2024 1114 hours INDICATIONS: Intermittent right upper abdominal pain radiating to the back today, CT chest abdomen pelvis this morning right lobe liver lesion, enlarged common bile duct with sludge versus stones in the common bile duct Technique: Multiple axial and coronal images of the abdomen have been obtained with the Siemens 1.5T MRI scanner. Images obtained included T1 weighted transverse images, T2-weighted transverse images, T2-weighted transverse images fat-suppressed, T2 weighted haste fat suppressed transverse images, T1 weighted images, in and out of phase images, T2-weighted coronal images, breath hold, T2 weighted haze coronal images as well as T2 weighted coronal thick slab images, MRCP. Findings: 4.9 x 4.6 cm right lobe liver lesion Intrahepatic biliary tract dilatation Absent gallbladder Enlarged common hepatic common bile duct measuring up to 18 mm Abrupt termination of the distal common bile duct No definite stones in the common bile duct No pancreatic mass, no dilated pancreatic duct Spleen is not enlarged No ascites IMPRESSION: 4.9 x 4.6 cm right lobe liver lesion, differential would include primary hepatocellular carcinoma, hepatic metastasis Enlarged common hepatic common bile duct with abrupt termination of the distal common bile duct, differential would include malignant stricture at the ampulla, recommend ERCP/biopsies follow-up Dictated By: Americo Thompson MD
--- NOTE | 2024-12-24 06:15 | PC.NURSE ---
did not give hydralazine pt b/p 166/81
[2024-12-24] MEDS: PIPER/TAZO INJ 3.375 GM in SODIUM CHLORIDE 0.9% (Popper) 50 ML IV (06:20)
[2024-12-24] MEDS: ONDANSETRON INJ 2 MG/ML INJ 2 ML 4 MG IV ×3 (06:34→19:27)
[2024-12-24] MEDS: MORPHINE SULF INJ 10 MG/ML VIAL 5 MG IVP ×2 (06:34→10:40)
--- NOTE | 2024-12-24 07:10 | PC.NURSE ---
ASSUMED CARE FOR PT. PT IS RESTING AT THIS TIME AND CONNECTED TO MONITOR. PT MOVING AROUND TO ADJUST SELF IN BED. CALL LIGHT WITH IN REACH.
--- NOTE | 2024-12-24 11:07 | PC.NURSE ---
PT TAKEN TO MRI VIA W/C
--- NOTE | 2024-12-24 12:28 | PC.CC ---
Addendum entered by Caroline Keene RN 12/24/24 17:43: Chart printed, all forms signed by , patient consent signed with patient by Jennifer REGAN, CD made, chart completed and given to Jennifer REGAN covering for charge nurse, transport set up with [facility] for 1930 Addendum entered by Caroline Keene RN 12/24/24 17:11: Suzanne called and gave accepting information, Patient is accepted to [facility] in [place] by Dr. Ca, report to be called to [phone] ext [phone] patient is to go to room 214 bed 2 Addendum entered by Caorline Keene RN 12/24/24 16:20: Spoke to [facility] for status update, she states they are waiting fo the doctor to call the back Addendum entered by Caroline Keene RN 12/24/24 15:29: Lalitha Dobbs called back from [facility] to speak with ER doctor, call transferred Addendum entered by Caroline Keene RN 12/24/24 13:27: Spoke to Suzanne from [facility], chart faxed will wait for call back Addendum entered by Caroline Keene RN 12/24/24 13:21: [facility] called back and spoke to Dr. Marvin asking for an MRI of the liver, order placed will keep trying to transfer Addendum entered by Caroline Keene RN 12/24/24 12:34: Spoke to Jo at [facility], chart faxed, call transferred to Dr. Marvin Addendum entered by Caroline Keene RN 12/24/24 12:31: Stephanie called back and stated they do not have ERCP ability today Original Note: Made aware by Charge nurse Ofelia that patient needs to be transferred, order placed by Dr. Marvin, spoke to Stephanie at [facility], chart faxed
--- NOTE | 2024-12-24 12:34 | PC.NURSE ---
[facility] RETURNED CALL. SPEAKING TO VIPUL FOSTER AT THIS TIME
--- NOTE | 2024-12-24 14:12 | PC.NURSE ---
SPOKE WITH MELISA AT [facility] [place]. UPDATED WITH PT'S LABS, SCANS AND VITAL SIGNS. MELISA WILL CONTINUE TO WORK ON POSS TRANSFER
[2024-12-24] MEDS: hydrALAZINE INJ 20 MG/ML VIAL 10 MG IV ×2 (14:20→17:19)
[2024-12-24] MEDS: SODIUM CHLORIDE 0.9% 1000 ML 1,000 ML 125 ML IV (15:22)
--- NOTE | 2024-12-24 17:22 | PC.NURSE ---
DR. HOWARD AT BEDSIDE TALKING TO PT IN REGARDS TO TRANSFER.
[2024-12-24] MEDS: DILTIAZEM CD 120 MG CAPCR 240 MG PO (17:38)
--- NOTE | 2024-12-24 20:14 | PC.NURSE ---
SPOKE TO TESSA AT [facility], ANSWERED ALL QUESTIONS. INFORMED PT IS ON HIS WAY VIA EMS.
== END 2024-12-24 20:01 | disposition short-term general hospital (02) ==
PROVIDERS: Physician Assistant; Emergency Provider Emergency Medicine
DX: K76.9 Liver disease, unspecified (principal); J18.9 Pneumonia, unspecified organism; K83.8 Other specified diseases of biliary tract; N40.0 Benign prostatic hyperplasia without lower urinary tract symptoms; N21.0 Calculus in bladder; I48.91 Unspecified atrial fibrillation; E07.9 Disorder of thyroid, unspecified; I10 Essential (primary) hypertension; Z79.01 Long term (current) use of anticoagulants; Z78.1 Physical restraint status
CPT/HCPCS: 36415; 71275; 74174; 76705; 80053; 81001; 83690; 84484; 85025; 87040; 93005; 96361; 96365; 96374; 96375; 96376; 99285; A4649; J0360; J2270; J2405; J2543; J7030; J7050; Q0162; Q9967; S8037; 74181; A9270

== ENCOUNTER 2025-01-08 17:56 | Emergency (ER) | payer MEDICARE, MEDICAID, SELFPAY ==
[2025-01-08 17:58] VITALS: BMI 30.7
[2025-01-08 18:29] VITALS: BP 183/75; PULSE 68; RESP 18; TEMP 37.1; O2SAT 96
--- NOTE | 2025-01-08 18:41 | EDRME_ITS ---
Rapid Medical Screening Exam RME Arrival date/time: 01/08/25 17:56 This is a 79-year-old male that complains of abdominal pain and back pain. Patient status post liver biopsy done in [facility]. Patient is being worked up for possible cancer to his liver. Patient denies any fever, nausea, chills, vomiting and reports some diarrhea. Patient states that she does not have a follow-up appointment with the surgeon until 21 January. Patient has a history of A-fib and was recently told he had gallstones but according to patient they did not remove the gallstones. I have greeted and performed a focused initial assessment of this patient. Initial appropriate labs ordered at this time. A comprehensive ED assessment and evaluation of the patient and analysis of all test and completion of medical decision making process will be conducted by additional ED provider. Chief Complaint: Back Pain/Injury Time Seen by Provider: 01/08/25 18:26 Vital signs: Vital Signs Temperature 98.8 F 01/08/25 18:29 Pulse Rate 68 01/08/25 18:29 Respiratory Rate 18 01/08/25 18:29 Blood Pressure 183/75 H 01/08/25 18:29 Pulse Oximetry (%) 96 01/08/25 18:29 Oxygen Delivery Method Room Air 01/08/25 18:29
[2025-01-08 19:06] LABS: Collection Type, Urine Voided; Squamous Epithelial Cell,Urine 0 /hpf (0-5)
[2025-01-08 19:11] LABS: Bilirubin,Urine Negative (Negative); Blood,Urine Negative (Negative); Clarity,Urine Clear (Clear/Hazy); Color,Urine Yellow (Lt Yel-Yel); Culture Indicated,Urine Not Indicated; Glucose, Urine Negative (Negative); Ketones,Urine 1+ (Negative); Leukocyte Esterase,Urine Negative (Negative); Nitrite,Urine Negative (Negative); Protein,Urine 1+ (Neg - Trace); RBC,Urine 3 /hpf (0-3); Specific Gravity,Urine 1.025 (1.001-1.035); Urobilinogen,Urine Negative mg/dL (0.0-1.0); WBC,Urine 2 /hpf (0-5)
[2025-01-08 19:26] LABS: Basophils % (Auto) 1 % (0-2.5); Eosinophils # (Auto) 0.1 Thou/mm3 (0.0-0.5); Eosinophils % (Auto) 1 % (0-10); Hematocrit 38.3 % (41.0-53.0); Hemoglobin 13.4 g/dL (13.5-16.0); Immature Granulocytes % (Auto) 0 % (0-0); Immature Granulocytes Auto 0.02 Thou/mm3 (0.00-0.00); Lymphocytes # (Auto) 0.9 Thou/mm3 (1.0-4.8); Lymphocytes % (Auto) 10 % (10-50); Mean Corpuscular Hemoglobin 33.1 pg (25.0-35.0); Mean Corpuscular Volume 95 fL (80-100); Monocytes # (Auto) 0.8 Thou/mm3 (0.0-0.8); Monocytes % (Auto) 10 % (0-12); Neutrophils % (Auto) 79 % (37-80); Nucleated Red Blood Cell % 0 /100 WBC (0); Platelet Count 314 Thou/mm3 (140-440); RDW Standard Deviation 45.6 fL (35.1-43.9); Red Blood Count 4.05 Miln/mm3 (4.50-5.90); White Blood Count 8.9 Thou/mm3 (3.8-10.6)
[2025-01-08 19:44] LABS: INR 1.1 (0.9-1.3)
[2025-01-08 19:59] LABS: Alanine Aminotransferase 133 U/L (10-49); Albumin, Serum 4.3 gm/dL (3.4-4.8); Albumin/Globulin Ratio 1.5 (1.2-2.2); Alkaline Phosphatase 335 U/L (46-116); Anion Gap 6 (7-16); Aspartate Amino Transferase 68 U/L (0-34); BUN/Creatinine Ratio 10 Ratio (12-20); Bilirubin,Total 1.8 mg/dL (0.3-1.2); Blood Urea Nitrogen 10 mg/dL (9-23); Calcium 9.3 mg/dL (8.3-10.6); Calcium (Corrected) 9.3 mg/dL (8.5-10.1); Carbon Dioxide 29.1 mMol/L (20.0-31.0); Chloride 99 mMol/L (98-107); Estimated Creatinine Clearance 59.7 mL/min (>60); Globulin 2.9 gm/dL (2.3-3.5); Glucose 128 mg/dL (74-106); Lipase 27 U/L (12-53); Osmolality,Calculated 269 (275-295); Sodium 134 mMol/L (136-145); Total Protein 7.2 gm/dL (5.7-8.2); eGFR > 60 See Note
--- NOTE | 2025-01-08 21:44 | PD.EDRME ---
Rapid Medical Screening Exam RME Arrival date/time: 01/08/25 17:56 01/08/25 17:56 This is a 79-year-old male that complains of abdominal pain and back pain. Patient status post liver biopsy done in [facility]. Patient is being worked up for possible cancer to his liver. Patient denies any fever, nausea, chills, vomiting and reports some diarrhea. Patient states that she does not have a follow-up appointment with the surgeon until 21 January. Patient has a history of A-fib and was recently told he had gallstones but according to patient they did not remove the gallstones. I have greeted and performed a focused initial assessment of this patient. Initial appropriate labs ordered at this time. A comprehensive ED assessment and evaluation of the patient and analysis of all test and completion of medical decision making process will be conducted by additional ED provider. Chief Complaint: Back Pain/Injury Time Seen by Provider: 01/08/25 18:26 Vital signs: Vital Signs Temperature 98.8 F 01/08/25 18:29 Pulse Rate 68 01/08/25 18:29 Respiratory Rate 18 01/08/25 18:29 Blood Pressure 183/75 H 01/08/25 18:29 Pulse Oximetry (%) 96 01/08/25 18:29 Oxygen Delivery Method Room Air 01/08/25 18:29 RME Narrative: 01/08/25 17:56 This is a 79-year-old male that complains of abdominal pain and back pain. Patient status post liver biopsy done in [facility]. Patient is being worked up for possible cancer to his liver. Patient denies any fever, nausea, chills, vomiting and reports some diarrhea. Patient states that she does not have a follow-up appointment with the surgeon until 21 January. Patient has a history of A-fib and was recently told he had gallstones but according to patient they did not remove the gallstones. I have greeted and performed a focused initial assessment of this patient. Initial appropriate labs ordered at this time. A comprehensive ED assessment and evaluation of the patient and analysis of all test and completion of medical decision making process will be conducted by additional ED provider.
--- NOTE | 2025-01-08 21:52 | PD.EDADULT ---
ED General RME/HPI General Chief complaint: Back Pain/Injury Stated complaint: BACK PAIN S/P SURGERY ON OBSTUCTION Time Seen by Provider: 01/08/25 18:26 Arrival date/time: 01/08/25 17:56 CC: Mid back pain, right upper quadrant abdominal pain HPI ongoing for the past 4 days with progressive increase in severity last meal was 8 hours ago. Patient was seen December 26 for liver biopsy discharge 17 from [facility] now comes to us with work visit worsening upper quadrant abdominal pain. Biopsy was for liver to rule out liver cancer. Patient denies fever chills chest pain shortness of breath or difficulty breathing. RME / HPI RME / HPI narrative: 01/08/25 17:56 This is a 79-year-old male that complains of abdominal pain and back pain. Patient status post liver biopsy done in [facility]. Patient is being worked up for possible cancer to his liver. Patient denies any fever, nausea, chills, vomiting and reports some diarrhea. Patient states that she does not have a follow-up appointment with the surgeon until 21 January. Patient has a history of A-fib and was recently told he had gallstones but according to patient they did not remove the gallstones. I have greeted and performed a focused initial assessment of this patient. Initial appropriate labs ordered at this time. A comprehensive ED assessment and evaluation of the patient and analysis of all test and completion of medical decision making process will be conducted by additional ED provider. Related Data Previous Rx's ?Medication ?Instructions ?Recorded apixaban 5 mg tablet (Eliquis) 5 mg PO BID atrial fibrillation 30 12/01/24 days #60 tabs diltiazem HCl 240 mg 240 mg PO QAM 30 days #30 caps 12/01/24 capsule,extended release 24 hr Allergies Allergy/AdvReac Type Severity Reaction Status Date / Time No Known Allergies Allergy Verified 01/08/25 18:03 Review of Systems Review of Systems Narrative Review of Systems: GEN: No fever, no chills, no weight loss EYES: No discharge, no visual changes, no pain HEENT: No ear pain, no congestion, no sore throat PULM: No shortness of breath, no cough, no congestion CV: No chest pain, no dyspnea on exertion, no palpitations GI: No nausea, no vomiting, no diarrhea, + pain, no constipation : No frequency, no urgency, no dysuria MUSC/SKEL: No joint pain, + back pain SKIN: No rash PSYCH: No hallucinations, no depression HEME/LYMPH: No easy bleeding or bruising tendencies NEURO: No weakness, no headache ED Exam Narrative Physical exam: [General: In moderate discomfort but not in any acute distress Head normocephalic HEENT: Within acceptable limits Neck is supple nontender Chest equal chest rise nontender to palpation Respiratory: Clear to auscultation no wheezes crackles or rubs CV: Rate rhythm is regular no murmurs rubs or clicks Abdomen mild right upper quadrant abdominal pain. No pain in the left upper quadrant or lower quadrants. Back: No CVA tenderness no spinous process tenderness from cervical spine thoracic and lumbar spine pain not reproducible with palpation. Skin: Intact no petechiae rash induration ulceration or crepitus Extremities: Moving all extremity against resistance cap refill less than 2 seconds neurosensory intact Neuro: Awake alert oriented x3 Glascow coma 15 no focal deficits] Course Course Course Narrative: Patient has a persistent rising in his T. 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 Review the laboratory results from prior and the chief complaint from the 14 show this is similar complaints with a chronic back pain. Of concern is the patient had a CTA that showed significant bilateral pneumonia this was not addressed. The patient has no respiratory symptoms and no leukocytosis today. He is mostly here for concerns of his back pain. At 2205, the patient informed me through the nurse that he just wanted pain medicines to be discharged this the same complaint he had on the , at this time the patient was advised that he may need to be transferred back to [place] for ERCP which I am not sure has been on or not the patient is refused this stating he will have his friends drive down to [place]. Patient is refusing all further treatment states that he will have a friend drive him down to [place]. Quality Measures none Orders Category Date Time Status XR chest 1V Stat Exams 01/08/25 22:00 Taken CBC Stat Lab 01/08/25 19:09 Completed Comprehensive Metabolic Panel Stat Lab 01/08/25 19:09 Completed Lipase Stat Lab 01/08/25 19:09 Completed PT [Prothrombin Time with INR] Stat Lab 01/08/25 19:09 Completed Urinalysis, C/S if Indicated Stat Lab 01/08/25 19:00 Completed oxyCODONE/APAP 5/325 [Percocet 5/325] Med 01/08/25 21:52 Discontinued 2 tab PO X1 ONE Vital Signs Vital signs: Vital Signs Temperature 98.8 F 01/08/25 18:29 Pulse Rate 68 01/08/25 18:29 Respiratory Rate 18 01/08/25 18:29 Blood Pressure 183/75 H 01/08/25 18:29 Pulse Oximetry (%) 96 01/08/25 18:29 Oxygen Delivery Method Room Air 01/08/25 18:29 Discharge Plan Plan Patient Disposition: Left Against Medical Advice Patient condition on transfer: Stable Prescriptions/Referrals Prescriptions/Med Rec: No Action Eliquis 5 mg tablet 5 mg PO BID 30 Days Qty: 60 2RF diltiazem HCl 240 mg capsule,extended release 24hr 240 mg PO QAM 30 Days Qty: 30 2RF Referrals: Vikas Lees MD [Physician] - In 1 week No Primary/Family,Physician [Primary Care Provider] - In 1 week Problem List Clinical Impression: Mid back pain Patient/Caregiver Discharge Instructions Education Materials: Abdominal Pain, ED Back and Neck Pain, General Print Language: Fijian MARYBETH/DIO Supervising Physician PA/DIO Supervising Physician: Kishor Rodriguez ENP MDM Patient Acuity High Acuity (complete MDM) Narrative: Review the medical record show the patient had a MRCP done 12/24/2024, this showed that the patient had 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 This was most likely cause for [place] to do the biopsies not sure if they did an ERCP or not. Clinical Information Provided by: patient Medical Records reviewed [facility] Labs Lab(s) Interpretation(s): CBC shows no leukocytosis and H&H of 13.4 and 38.3 respectively. Platelets at 314. Coags within acceptable limits CMP shows sodium 134 gap of 6 glucose of 128 no other electrolyte imbalances no renal impairment T. bili at 1.8 AST was 68 ALT T at 3 and 33 alk phos at 335. Urine shows 1+ ketones 1+ protein no other acute findings. Medication Administration(s) Medication Administration History Discontinued Medications Oxycodone/Acetaminophen (Oxycodone/Apap 5/325 Tablet) 2 tab PO X1 ONE Stop: 01/08/25 21:53 Last Admin: 01/08/25 22:03 Dose: 2 tab Documented By: EDER
--- NOTE | 2025-01-08 22:00 | XR_ITS ---
Examination: PA chest single view FINDINGS: Upright PA chest single view Standing time: January 08, 2025 10:10 PM INDICATIONS: Mid back pain abdominal pain beginning 4 days ago. FINDINGS: Subsegmental atelectasis right base Normal heart size Ectatic thoracic aorta No lobar pneumonia or pulmonary edema IMPRESSION: Subsegmental atelectasis right base
[2025-01-08] MEDS: oxyCODONE/APAP 5/325 TABLET 2 TAB PO (22:03)
--- NOTE | 2025-01-08 22:27 | PC.NURSE ---
PATIENT REQUESTED TO LEAVE AMA AND NOT BE TRANSFER PEREZ PA AWARE.
== END 2025-01-08 22:28 | disposition left against medical advice (07) ==
PROVIDERS: Nurse Practitioner Family; Emergency Provider Emergency Medicine
DX: M54.6 Pain in thoracic spine (principal); I48.91 Unspecified atrial fibrillation
CPT/HCPCS: 36415; 71045; 80053; 81001; 83690; 85025; 85610; 99283; A9270